=== PATIENT | male | born 1955 | race Caucasian/White ===

== ENCOUNTER 2024-10-20 14:39 | Emergency (ER) | payer OTHER, SELFPAY ==
[2024-10-20 14:43] VITALS: BP 146/79; PULSE 91; RESP 18; TEMP 36.6; O2SAT 98; BMI 26.4
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
[2024-10-20 16:20] LABS: Hematocrit* 38.3 % (37.0-53.0); Hemoglobin* 13.1 gm/dL (13.5-17.5); Immature Granulocytes Pct Auto 0.2 %; Mean Corpuscular HGB Conc 34 gm/dL (32-36); Mean Corpuscular Hemoglobin 30 pg (26-34); Mean Corpuscular Volume 86 fL (80-100); RDW Coefficient of Variation % 12.3 % (11.5-15.5); Red Blood Count* 4.44 m/uL (4.30-5.90); White Blood Count* 4.21 K/uL (4.50-11.00)
[2024-10-20 16:21] LABS: Immature Granulocytes Abs Auto 0.00 K/uL (0.00-0.30); Lymphocytes Absolute Auto 0.80 K/uL (0.90-2.90); Slide Review Reflex No
[2024-10-20 16:33] LABS: Albumin* 4.3 g/dL (3.3-5.0); Chloride* 92 mmol/L (96-114); Sodium* 127 mmol/L (135-149)
[2024-10-20 16:34] LABS: Potassium* 4.4 mmol/L (3.6-5.1)
[2024-10-20 16:36] LABS: Alanine Aminotransferase* 21 U/L (4-50); Anion Gap 4 mEq/L (7-15); Aspartate Amino Transferase* 31 U/L (12-35); Blood Urea Nitrogen* 12 mg/dL (7-30); Carbon Dioxide* 31 mmol/L (20-32); Creatinine* 0.8 mg/dL (0.5-1.5); Est. Creatinine Clearance* 76.52; Estimated Glomerular Filt Rate 96 ml/min; Total Protein* 7.3 g/dL (6.0-8.3)
[2024-10-20 16:37] LABS: Alkaline Phosphatase* 77 U/L (40-150); Bilirubin Total* 0.5 mg/dL (0.1-1.5); Calcium* 9.4 mg/dL (8.4-10.6); Glucose* 121 mg/dL (60-115)
[2024-10-20 16:41] LABS: Acetaminophen* < 10.0 ug/mL (10.0-30.0); Ethanol* < 0.01 % (0.01-0.03); Salicylate* < 1.0 mg/dL (1.0-10)
[2024-10-20 17:11] LABS: Appearance Urine Clear (Clear)
[2024-10-20 17:16] LABS: Cannabinoid Screen Urine Negative (Negative); Methamphetamines Screen Urine Negative (Negative); Tricyclic Antidepressant Urine POSITIVE (Negative)
== END 2024-10-20 18:04 | disposition home or self-care (01) ==
PROVIDERS: Emergency Provider Family Medicine
DX: F60.0 Paranoid personality disorder (principal); F42.9 Obsessive-compulsive disorder, unspecified; K40.90 Unilateral inguinal hernia, without obstruction or gangrene, not specified as recurrent; Z51.81 Encounter for therapeutic drug level monitoring
CPT/HCPCS: 36415; 80053; 80143; 80179; 80306; 81001; 82077; 85025; 99284; Q3014

== ENCOUNTER 2024-10-22 04:30 | Outpatient (CLI) | payer OTHER, SELFPAY | END 2024-10-22 04:31 | disposition home or self-care (01) | LOC: AMB 10-25 09:56 | PROVIDERS: Visit Provider Internal Medicine | DX: R41.82 Altered mental status, unspecified (principal) | CPT/HCPCS: A0425; A0427 ==

== ENCOUNTER 2024-10-22 05:19 | Emergency (ER) | payer OTHER, SELFPAY ==
--- OUTSIDE RECORDS SUMMARY | 2024-10-21 10:30 | XMS_ITS | Encounter Summary ---
Author Organization [facility] Address [address] [place] [id number] Care Team Providers Care Affiliate Manager Name Role Phone Ben Peterson DO Primary Care Provider [phone] Encounter Details Date Type Department Care Team (Late Contact Info) Description 10/21/2024 10:30 AM CDT Lab Visit [place] [address] [place] [address]. [place], [place] [id number] Encounter for long-term (current) use of medications; [...] Department Care Team (Late Contact Info) Description 10/28/2024 10:00 AM CDT Appointment [facility] [address] [place] [address] Ben Peterson DO [address] [place] [address] documented as of this encounter Procedures Procedure [...] Results * TSH (10/21/2024 10:38 AM CDT) TSH, Sensitive 1.01 0.30 - 4.50 uIU/mL 10/21/2024 2:11 PM CDT [facility] Blood Venipuncture / Unknown 10/21/2024 10:38 AM CDT 10/21/2024 10:38 AM CDT us Jennifer Olguin MD LAB_1 Final Result [facility] CLIA: [id number] [address] * (ABNORMAL) Basic Metabolic Panel (10/21/2024 10:38 AM CDT) Sodium 130(L) 136 - 145 mmol/L 10/21/2024 11:53 AM CDT [facility] Potassium 4.1 3.5 - 5.1 mmol/L 10/21/2024 11:53 AM CDT [facility] Chloride 96(L) 98 - 109 mmol/L 10/21/2024 11:53 AM CDT [facility] CO2 29 20 - 29 mmol/L 10/21/2024 11:53 AM [place] [address] [facility] Anion Gap 5 6 - 16 mmol/L 10/21/2024 11:53 AM [place] [address] [facility] Calcium 9.0 8.4 - 10.4 mg/dL 10/21/2024 11:53 AM [place] [address] [facility] BUN 9 7 - 26 mg/dL 10/21/2024 11:53 AM [place] [address] [facility] Creatinine 0.83 0.73 - 1.18 mg/dL 10/21/2024 11:53 AM [place] [address] [facility] Glucose 106(H) 70 - 100 mg/dL 10/21/2024 11:53 AM [place] [address] [facility] Comment:The given reference range is for the fasting state. Non-fasting reference range for glucose is 70 - 180 mg/dL. GFR, Estimated >60 >60 mL/min/1.7 3m2 10/21/2024 11:53 AM [place] [address] [facility] Hours Fasting 1.0 8 - 12 Hours 10/21/2024 11:53 AM [place] [address] [facility] Blood Venipuncture / Unknown 10/21/2024 10:38 AM CDT 10/21/2024 10:38 AM CDT us Jennifer Olguin MD LAB_1 Final Result [place] [address] [facility] CLIA: [id number] [address] [place] [id number] * Lipid Panel and Direct LDL(If Needed) (10/21/2024 10:38 AM CDT) Cholesterol 157 0 - 199 mg/dL 10/21/2024 11:53 AM [place] [address] [facility] Triglyceride 46 <=149 mg/dL 10/21/2024 11:53 AM [place] [address] [facility] HDL Cholesterol 51 >=40 mg/dL 11:53 AM [place] [address] [facility] LDL, Calculated 97 <130 mg/dL 11:53 AM CDT [place] [address] [facility] Non HDL Chol, Calculated 106 <=159 mg/dL 10/21/2024 11:53 AM CDT [place] [address] [facility] Cholesterol/HDL Ratio 3.1 <=5.0 10/21/2024 11:53 AM CDT [place] [address] [facility] Hours Fasting 1.0 8 - 12 Hours 10/21/2024 11:53 AM CDT [place] [address] [facility] Blood Venipuncture / Unknown 10/21/2024 10:38 AM CDT 10/21/2024 10:38 AM CDT us Jennifer Olguin MD LAB_1 Final Result [place] [address] [facility] CLIA: [id number] [address] [place] [phone] * (ABNORMAL) Hgb A1C (10/21/2024 10:38 AM CDT) Pathologist [facility] Hemoglobin A1C (Rapid) 5.8(H) <=5.6 % 10/21/2024 11:01 AM CDT [place] [address] [facility] Estimated Average Glucose (Calc) 120 < 117 mg/dL 10/21/2024 11:01 AM CDT [place] [address] [facility] Comment:Estimated average gl ucose (eAG) converts A1c into glucose units (mg/dL) and estimates average glucose over the past approximately 3 months. The eAG reference interval (<117 mg/dL) corresponds to an A1c of <5.7%. Blood Venipuncture / Unknown 10/21/2024 10:38 AM CDT 10/21/2024 10:38 AM CDT Narrative [place] [address] [facility] - 10/21/2024 11:01 AM CDT For [...] us Jennifer Olguin MD LAB_1 Final Result [facility] CLIA: [id number] [address] [place] [phone], [facility] documented in this encounter Visit Diagnoses Diagnosis Encounter for long-term (current) use of medications Encounter for long-term (current) use of other medications Psychosis, unspecified psychosis type ([facility]) documented in this encounter Care Teams Affiliate Manager Relationship Specialty Start Date End Date Ben Peterson DO [address] [place] [address] PCP - General Family Practice 10/02/23 documented as of this encounter
[2024-10-22 05:29] VITALS: BP 172/91; PULSE 80; RESP 16; TEMP 36.2; O2SAT 98; BMI 31.9
[2024-10-22 06:30] LABS: Hematocrit 39.3 % (37.0-53.0); Hemoglobin* 13.6 gm/dL (13.5-17.5); Immature Granulocytes Abs Auto 0.02 K/uL (0.00-0.30); Immature Granulocytes Pct Auto 0.3 %; Mean Corpuscular HGB Conc 35 gm/dL (32-36); Mean Corpuscular Hemoglobin 29 pg (26-34); Mean Corpuscular Volume 85 fL (80-100); RDW Coefficient of Variation % 12.4 % (11.5-15.5); Red Blood Count 4.65 m/uL (4.30-5.90); White Blood Count* 7.52 K/uL (4.50-11.00)
--- OUTSIDE RECORDS SUMMARY | 2024-10-22 06:31 | XMS_ITS | Clinical Summary ---
Author Organization [facility] Address [address] [address] Care Team Providers Care Developmental Education Instructor Name Role Phone Ben Peterson Primary Care Provider [phone] Source Comments You are receiving this document as you are listed as the primary care provider,follow-up provider, or the patient has been referred to you for consultation.This is in compliance with the Medicare and[facility] EHR Incentive Program,which states Providers who transition their patient to another setting of careor provider of care or refers their patient to another provider of care shouldprovide summary care record for each transition of care or referral. [employer] Allergies No known active allergies Medications * This document contains information received from the source organization and may not represent a complete record from that organization. diphenhydrAMINE (BENADRYL) 25 MG tabletIndication s:VALENTIN COLEMAN FriJuly 24, 2015 12:54 PM 2 tab every night 2 tabs at bedtime as needed for insomnia 1 tablet 0 06/01/19 14 Active MINOXIDIL 5 % Apply topically daily. Takes every 3-4 days 04/27/19 15 Active aspirin EC 81 MG enteric coated tabletIndication s:Controlled type 2 diabetes mellitus without complication, without long-term current use of insulin (HRC) Take 1 Tablet (81 mg) by mouth daily. To prevent heart disease and stroke 10/02/19 24 Active omeprazole (PRILOSEC-OTC) 20 MG tablet Take 2 Tablets (40 mg) by mouth. Active fluvoxaMINE (LUVOX) 100 MG tablet Take 1 Tablet (100 mg) by mouth three times a day. 270 Tablet 1 05/11/19 25 Active omeprazole (PRILOSEC) 20 MG capsuleIndicatio ns:Gastroesophag eal reflux disease without esophagitis TAKE 2 CAPSULES (40 MG) BY MOUTH DAILY. TAKE 1 HOUR BEFORE A MEAL. 60 Capsule 09/09/19 25 Active LORazepam (ATIVAN) 1 MG tablet TAKE 0.5 TABLETS (0.5 MG) BY MOUTH TWO TIMES DAILY NEEDED FOR ANXIETY. 30 Tablet 1 09/14/19 25 Active QUEtiapine (SEROQUEL) 400 MG tablet 1 tab po at bedtime (also has 50 mg tablet for total dose of 450 mg) 90 Tablet 10/01/19 25 Active methylphenidate (RITALIN) 10 MG tabletIndication s:Attention-defi cit hyperactivity disorder, predominantly inattentive type (HRC) Take 1 Tablet (10 mg) by mouth 4 times daily as needed (ADHD). 120 Tablet 10/13/19 25 Active OLANZapine (ZYPREXA) 5 MG tablet Take 1 Tablet (5 mg) by mouth every evening. 90 Tablet 1 10/22/19 25 Active QUEtiapine (SEROQUEL) 50 MG tablet Take 1 tab po qam and 1 tab po qpm and 1 tab po qhs 270 Tablet 10/22/19 25 Active fluvoxaMINE (LUVOX) 25 MG tablet TAKE 0.5-1 TABLET BY MOUTH DAILY, IN ADDITION TO THE 300 MG DOSE. 90 Tablet 1 05/11/19 25 025 Discontinued(I neffective for condition) QUEtiapine (SEROQUEL) 400 MG tablet 1 tab po at bedtime 90 Tablet 1 05/11/19 25 025 Discontinued(* Med change OR same med OR reorder, new dose/direction s) OLANZapine (ZYPREXA) 2.5 MG tablet Take 1 tab po qhs 90 Tablet 1 05/11/19 25 025 Discontinued QUEtiapine (SEROQUEL) 50 MG tablet Take 1 tab po qhs 90 Tablet 1 05/11/19 25 025 Discontinued(* Med change OR same med OR reorder, new dose/direction s) methylphenidate (RITALIN) 10 MG tabletIndication s:Attention-defi cit hyperactivity disorder, predominantly inattentive type (HRC) Take 1 Tablet (10 mg) by mouth 4 times daily as needed (ADHD). 120 Tablet 09/10/19 25 025 Discontinued(* Med change OR same med OR reorder, new dose/direction s) QUEtiapine (SEROQUEL) 50 MG tablet Take 1 tab po qhs 90 Tablet 10/01/19 25 025 Discontinued(* Med change OR same med OR reorder, new dose/direction s) Active Problems Problem Noted Date Diagnosed Date Psychosis 10/21/2024 MDD (major depressive disord er), recurrent, severe, with psychosis 08/18/2024 SINA (generalized anxiety disorder) 08/18/2024 Auditory hallucinations 05/10/2024 Controlled type 2 diabetes m ellitus without complication, without long-term current use of insulin 10/02/2023 Anxiety 03/30/2012 Dyslipidemia 09/18/2011 OCD (obsessive compulsive disorder) 01/07/2011 MDD (major depressive disord er), recurrent episode, moderate 01/07/2011 Attention-deficit hyperactiv ity disorder, predominantly inattentive type 01/07/2011 Esophageal reflux 05/08/2009 Overview (10/30/2016): Gastroesophageal Reflux Disease Resolved Problems Problem Noted Date Diagnosed Date Resolved Date Impaired fasting glucose 09/18/2011 Encounters * This document contains information received from the source organization and may not represent a complete record from that organization. Date Type Department Care Team Description 10/21/2024 10:30 AM CDT Lab Visit [facility] [address] [facility] [place], [place] [address] Encounter for long-term (current) use of medications; Psychosis, unspecified psychosis type (HRC) 10/05/2024 Refill 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 [address] Ben Peterson, Refill (omeprazole (PRILOSEC) 20 MG capsule) 09/03/2024 [address] [facility] [address] [place] [address] Leeroy Shelton MD Refill (omeprazole (PRILOSEC) 20 MG capsule [Pharmacy Med Name: OMEPRAZOLE DR 20 MG CAPSULE]) 08/17/2024 Telephone [facility] [address] [facility] [place] [address] Ben Peterson, DM/VASC/HTN Registry Call 1; DM/VASC/HTN Registry Call 2 from Last 3 Months Immunizations Immunization Administration Dates Next Due Influenza IIV4 (Quadrivalent) 0.5mL (16523) 12/09 Influenza IIV4 (Quadrivalent) Fluzone, 65+ Yrs 1 03/30/2021 Gisela COVID-19 Vaccine 07/13/2020 Moderna Bivalent 12+ 01/02/2022 Moderna COVID-19 12+ 01/05/2023 Moderna Monovalent 12+ 08/14/2021,02/02/2021 PPSV23 (Pneumovax) 09/29/2020 Pfizer Monovalent 12+ Purple Top 07/13/2020 TDAP (BOOSTRIX) 10/02/2011 Td 03/10/2004 Zoster RZV (Shingrix) 10/18/2020,10/01/2019 Family History Medical History Relation Name Comments Cancer Father lung OCD Father Cancer Mother breast cancer OCD Brother 1 OCD Brother 2 Cancer, Colon Negative Family History Cancer, Prostate Negative Family History Diabetes Negative Family History Glaucoma Negative Family History Heart Disease Negative Family History Macular Degeneration Negative Family History Retinal Detachment Negative Family History Relation Name Status Comments Father (Age 87) Mother (Age 73) Brother 1 Alive Brother 2 Alive Social History Tobacco Use Types Packs/Day Years [...] file Not on file Not on file Last Filed Vital Signs Vital Sign Reading Time Taken Comments Blood Pressure 142/73 08/18/2024 11:27 AM CDT Pulse 79 08/18/2024 11:27 AM CDT Temperature 36.7 C (98.1 F) 12/16/2023 11:27 AM CDT Respiratory Rate 24 12/16/2023 11:27 AM CDT Oxygen Saturation 100% 12/16/2023 11:27 AM CDT Inhaled Oxygen Concentration - - Weight 85.3 kg (188 lb) 08/18/2024 11:27 AM CDT Height 181.6 cm (5' 11.5) 10/02/2023 9:31 AM CD T Body Mass Index 25.86 10/02/2023 9:31 AM CDT Plan of Treatment Upcoming Encounters Date Type Department Care Team (Late st Contact Info) Description 10/28/2024 10:00 AM CDT Appointment [facility] [address] [place], [place] [phone] Ben Peterson, DO [address] [address] Health Maintenance Due Date Last Done Comments Hep B Immunization Discussion 1955 Colonoscopy 03/11/2020 03/11/2018, 07/16/2017 Pneumococcal Vaccine 50+ Yrs (2 of 2 - PCV) 09/29/2021 09/29/2020 DTaP/Tdap/Td Vaccine (2 - Tdap) 10/01/2021 10/02/2011, 03/10/2004 Medicare Annual Wellness Visit 03/10/2024 03/31/2023, 10/28/2022, 10/05/2021, Additional history exists COVID-19 Vaccine ( season) 2024 12/18/2023, 01/05/2023, 01/02/2022, Additional history exists Diabetes: Foot Exam 10/01/2024 10/02/2023 Influenza Vaccine (#1) 2024 01/28/2022, 2012 Diabetes: Albumin/Creatinine Ratio, Urine 12/24/2024 12/25/2023 Diabetes: Eye Exam 03/30/2025 03/30/2024 Diabetes: HGBA1C 04/23/2025 10/21/2024, , 12/25/2023, Additional history exists Diabetes: Creatinine 10/21/2025 10/21/2024, 03/31/2023, 10/28/2022, Additional history exists Diabetes: Lipid Panel 10/21/2029 10/21/2024 , 10/28/2022, 10/05/2021, Additional history exists RSV Vaccine (1 - 1-dose 75+ series) 2030 Hep C Screening (Preventive Services) Completed 05/27/2018 Zoster/Shingles Vaccine Completed 10/18/2020, 09/30 PSA Screening Discussion Discontinued 023, 10/05/2021, 09/29/2020, Additional history exists Cholesterol Discontinued 10/21/2024, 10/09, 10/05/2021, Additional history exists HepA Vaccine Aged Out No longer eligi ble based on patient's age to complete this topic HepB Vaccine Aged Out No longer eligi ble based on patient's age to complete this topic Hib Vaccine Aged Out No longer eligi ble based on patient's age to complete this topic IPV (Polio) Vaccine Aged Out No longe r eligible based on patient's age to complete this topic MCV4 Vaccine Aged Out No longer eligi ble based on patient's age to complete this topic Meningococcal B Vaccine Aged Out No l onger eligible based on patient's age to complete this topic Procedures Procedure Name Priority Date/Time Associated Diagnosis Comments TSH, SENSITIVE Routine 10/21/2024 10:38 AM CDT Encounter for long-term (current) use of medications BASIC METABOLIC PANEL Routine 10/21/2024 10:38 AM CDT Psychosis, unspecified psychosis type (HRC) Encounter for long-term (current) use of medications LIPID PANEL & DIRECT LDL (IF NEEDED) Routine 10/21/2024 10:38 AM CDT Encounter for long-term (current) use of medications HGB A1C Routine 10/21/2024 10:38 AM CDT Encounter for long-term (current) use of medications ALBUMIN/CREAT RATIO Routine 12/25/2023 1 1:27 AM CDT Controlled type 2 diabetes mellitus without complication, without long-term current use of insulin (HRC) PROSTATIC SPECIFIC ANTIGEN(SCREEN) Routine 10/28/2022 10:14 AM CDT Screening for prostate cancer HEPATITIS C ANTIBODY, WITH REFLEX (ANTI-HCV) Routine 05/27/2018 12:21 PM CDT Need for hepatitis C screening test ENDOSCOPY, COLON, SCREENING/DIAGNOSTI C Routine 03/11/2018 2:47 PM TECHNICAL SUPPORT 1 SOFTWARE ENGINEER Polyp of colon, unspecified part of colon, unspecified type from Last 3 Months or Most Recently Relevant to Health Maintenance Results * Lipid Panel and Direct LDL(If Needed) (10/21/2024 10:38 AM CDT) Cholesterol 157 0 - 199 mg/dL 10/21/2024 11:53 AM [facility] [address] [facility] Triglyceride 46 <=149 mg/dL 10/21/2024 11:53 AM [place] [facility] [address] [facility] HDL Cholesterol 51 >=40 mg/dL 11:53 AM [place] [address] [facility] LDL, Calculated 97 <130 mg/dL 11:53 AM [place] [address] [facility] Non HDL Chol, Calculated 106 <=159 mg/dL 10/21/2024 11:53 AM [facility] [address] [facility] Cholesterol/HDL Ratio 3.1 <=5.0 10/21/2024 11:53 AM [place] [place] [address] [facility] Hours Fasting 1.0 8 - 12 Hours 10/21/2024 11:53 AM [place] [address] [facility] Blood Venipuncture / Unknown 10/21/2024 10:38 AM CDT 10/21/2024 10:38 AM CDT Jennifer Olguin MD LAB_1 Final Result Performing Organization Address [facility] de Phone Number [facility] [address] [facility] CLIA: [id number] [address] [place] [address] * TSH (10/21/2024 10:38 AM CDT) [facility] TSH, Sensitive 1.01 0.30 - 4.50 uIU/mL 10/21/2024 2:11 PM CDT [facility] Blood Venipuncture / Unknown 10/21/2024 10:38 AM CDT 10/21/2024 10:38 AM CDT Jennifer Olguin MD LAB_1 Final Result Performing Organization Address [facility] de Phone Number [facility] CLIA: [id number] [address] [place] [id number] * (ABNORMAL) Basic Metabolic Panel (10/21/2024 10:38 AM CDT) [facility] Sodium 130(L) 136 - 145 mmol/L 10/21/2024 11:53 AM [place] [address] [facility] Potassium 4.1 3.5 - 5.1 mmol/L 10/21/2024 11:53 AM [place] [address] [facility] Chloride 96(L) 98 - 109 mmol/L 10/21/2024 11:53 AM [place] [address] [facility] CO2 29 20 - 29 mmol/L 10/21/2024 11:53 AM [place] [address] [facility] Anion Gap 5 6 - 16 mmol/L 10/21/2024 11:53 AM [place] [address] [facility] Calcium 9.0 8.4 - 10.4 mg/dL 10/21/2024 11:53 AM [place] [address] [facility] BUN 9 7 - 26 mg/dL 10/21/2024 11:53 AM [place] [address] [facility] Creatinine 0.83 0.73 - 1.18 mg/dL 10/21/2024 11:53 AM [facility] [place] [address] [facility] Glucose 106(H) 70 - 100 mg/dL 10/21/2024 11:53 AM [facility] [place] [address] [facility] Comment:The given reference range is for the fasting state. Non-fasting reference range for glucose is 70 - 180 mg/dL. GFR, Estimated >60 >60 mL/min/1.7 3m2 10/21/2024 11:53 AM T [place] [address] [facility] Hours Fasting 1.0 8 - 12 Hours 10/21/2024 11:53 AM T [place] [address] [facility] Blood Venipuncture / Unknown 10/21/2024 10:38 AM CDT 10/21/2024 10:38 AM CDT us Jennifer Olguin MD LAB_1 Final Result [facility] [facility] [address] [facility] CLIA: [id number] [address] [place] [id number] * (ABNORMAL) Hgb A1C (10/21/2024 10:38 AM CDT) [facility] Hemoglobin A1C (Rapid) 5.8(H) <=5.6 % 10/21/2024 11:01 AM T [place] [address] [facility] Estimated Average Glucose (Calc) 120 < 117 mg/dL 10/21/2024 11:01 AM T [place] [address] [facility] Comment:Estimated average gl ucose (eAG) converts A1c into glucose units (mg/dL) and estimates average glucose over the past approximately 3 months. The eAG reference interval (<117 mg/dL) corresponds to an A1c of <5.7%. Blood Venipuncture / Unknown 10/21/2024 10:38 AM CDT 10/21/2024 10:38 AM CDT Narrative [facility] [facility] [address] [facility] - 10/21/2024 11:01 AM CDT For [...] us Jennifer Olguin MD LAB_1 Final Result Performing Organization Address [facility] Co de Phone Number [facility] [address] [facility] CLIA: [id number] [address] [place] [address] * Albumin/Creatinine Ratio,Random Urine (12/25/2023 11:27 AM CDT) Albumin/Creati nine Ratio, Urine, Random 3 <30 mg/g 12/25/2023 7:18 PM CDT [facility] Albumin, Urine, Random 2.4 mg/L 12/25/2023 7:18 PM CDT [facility] Creatinine, Urine, Random 72 >20 mg/dL mg/dL 12/25/2023 7:18 PM CDT [facility] Urine Non-blood Collection / Unknown 12/25/2023 11:27 AM CDT 12/25/2023 11:27 AM CDT Ben Peterson DO LAB_1 Final Result Performing Organization Address [facility] Co de Phone Number [facility] [address] * Prostatic Specific Antigen (Screen) (10/28/2022 10:14 AM CDT) Prostatic Specific Antigen 0.4 0.0 - 4.0 ng/mL 10/28/2022 4:02 PM CDT [facility] Blood Venipuncture / Unknown 10/28/2022 10:14 AM CDT 10/28/2022 10:14 AM CDT Narrative [facility] - 10/28/2022 4:02 PM CDT The [employer] PSA Chemiluminescent immunoassay is used. Results obtained with different test methods or kits cannot be used interchangeably. us Leeroy Shelton MD LAB_1 Final Result Performing Organization Address [facility] de Phone Number [id number] [place] [address] * Hepatitis C Antibody, with Reflex (05/27/2018 12:21 PM CDT) Hepatitis C Antibody Nonreactive Nonreactive PN SOFT 05/27/2018 12:2 1 PM CDT 05/27/2018 3:27 PM CDT Narrative PN SOFT - 05/27/2018 4:12 PM [place] [address] CLIA number [id number] us Chase Ho MD LAB_1 Final Resu lt Performing Organization Address [facility] de Phone Number PN SOFT [address] [place] [address] * Endoscopy, colon, diagnostic (03/11/2018 2:47 PM TECHNICAL SUPPORT 1 SOFTWARE ENGINEER) Anatomical Region Laterality Modality Other 03/11/2018 2:47 PM TECHNICAL SUPPORT 1 SOFTWARE ENGINEER Narrative 03/11/2018 2:47 PM TECHNICAL SUPPORT 1 SOFTWARE ENGINEER Patient Name: Juan Jose Szymanski Procedure Date: 03/11/2018 2:47 PM Date of : 1955 Admit Type: Outpatient Age: 63 Gender: Male Note Status: Finalized Attending MD: Lara Suarez MD Procedure: Colonoscopy Indications: High risk colon cancer surveillance: Personal history of colonic polyps, Surveillance: Personal history of piecemeal removal of large sessile adenoma on last colonoscopy 6 months ago Providers: Lara Suarez MD, Karol Serrano, RN Referring MD: Lara Suarez MD Medicines: Fentanyl 150 micrograms IV, Midazolam 4 mg IV, Oxygen 2l/min per nasal cannula, CO2 insufflation Complications: No immediate complications. Estimated blood loss: None. Procedure: After I obtained informed consent, the scope was passed under direct vision. Throughout the procedure, the patient's blood pressure, pulse, and oxygen saturations were monitored continuously. The [id number] was introduced through the anus and advanced to the terminal ileum. The colonoscopy was performed without difficulty. The patient tolerated the procedure well. The quality of the bowel preparation was good. Findings: The perianal and digital rectal examinations were normal. A medium scar was found in the cecum. The scar tissue was healthy in appearance. There was no evidence of the previous polyp. This was biopsied with a cold forceps for histology. Coagulation for destruction of remaining portion of lesion using argon plasma at 0.8 liters/minute and 20 marcelo was successful. The terminal ileum appeared normal. Impression: - Scar in the cecum. Biopsied. Treated with argon plasma coagulation (APC). - The examined portion of the ileum was normal. Recommendation: - Await pathology results. - Repeat colonoscopy in 2 years for surveillance based on pathology results. Procedure Code(s): --- Professional --- 20520, Colonoscopy, flexible; with ablation of tumor(s), polyp(s), or other lesion(s) (includes pre- and post-dilation and guide wire passage, when performed) Diagnosis Code(s): --- Professional --- Z86.010, Personal history of colonic polyps K63.89, Other specified diseases of intestine Z09, Encounter for follow-up examination after completed treatment for conditions other than malignant neoplasm CPT copyright 2016 [employer]. All rights reserved. The codes documented in this report are preliminary and upon sausage grinder review may be revised to meet current compliance requirements. Lara Suarez MD 03/11/2018 3:57:55 PM This document has been electronically signed. Number of Addenda: 0 Note Initiated On: 03/11/2018 2:47 PM Endoscopy Report Procedure Note Lara Suarez MD - 03/11/2018 Patient Name: Juan Jose Szymanski Procedure Date: 03/11/2018 2:47 PM Date of : 1955 Admit Type: Outpatient Age: 63 Gender: Male Note Status: Finalized Attending MD: Lara Suarez MD Procedure: Colonoscopy Indications: High risk colon cancer surveillance: Personal history of colonic polyps, Surveillance: Personal history of piecemeal removal of large sessile adenoma on last colonoscopy 6 months ago Providers: Lara Suarez MD, Karol Serrano RN Referring MD: Lara Suarez MD Medicines: Fentanyl 150 micrograms IV, Midazolam 4 mg IV, Oxygen 2l/min per nasal cannula, CO2 insufflation Complications: No immediate complications. Estimated blood loss: None. Procedure: After I obtained informed consent, the scope was passed under direct vision. Throughout the procedure, the patient's blood pressure, pulse, and oxygen saturations were monitored continuously. The [id number] was introduced through the anus and advanced to the terminal ileum. The colonoscopy was performed without difficulty. The patient tolerated the procedure well. The quality of the bowel preparation was good. Findings: The perianal and digital rectal examinations were normal. A medium scar was found in the cecum. The scar tissue was healthy in appearance. There was no evidence of the previous polyp. This was biopsied with a cold forceps for histology. Coagulation for destruction of remaining portion of lesion using argon plasma at 0.8 liters/minute and 20 marcelo was successful. The terminal ileum appeared normal. Impression: - Scar in the cecum. Biopsied. Treated with argon plasma coagulation (APC). - The examined portion of the ileum was normal. Recommendation: - Await pathology results. - Repeat colonoscopy in 2 years for surveillance based on pathology results. Procedure Code(s): --- Professional --- 65050, Colonoscopy, flexible; with ablation of tumor(s), polyp(s), or other lesion(s) (includes pre- and post-dilation and guide wire passage, when performed) Diagnosis Code(s): --- Professional --- Z86.010, Personal history of colonic polyps K63.89, Other specified diseases of intestine Z09, Encounter for follow-up examination after completed treatment for conditions other than malignant neoplasm CPT copyright 2016 [employer]. All rights reserved. The codes documented in this report are preliminary and upon sausage grinder review may be revised to meet current compliance requirements. Lara Suarez MD 03/11/2018 3:57:55 PM This document has been electronically signed. Number of Addenda: 0 Note Initiated On: 03/11/2018 2:47 PM Endoscopy Report us Lara Suarez MD ET GI PROCEDURE ORDERABLE S Final Result from Last 3 Months or Most Recently Relevant to Health Maintenance Insurance [employer] MEDICARE ADVANTAGE MEDICARE ADVANTAGE Care Teams Developmental Education Instructor Relationship Specialty Start Date End Date Ben Peterson DO [address] [place] [address] PCP - General Family Practice 10/02/23
--- OUTSIDE RECORDS SUMMARY | 2024-10-22 06:31 | XMS_ITS | Encounter Summary ---
Author Organization [facility] Address [address], [place] [address] Care Team Providers Care Electronic Commerce Specialist Name Role Phone Ben Peterson Primary Care Provider [phone] Reason for Visit * Reason Comments Refill omeprazole (PRILOSEC ) 20 MG capsule [Pharmacy Med Name: OMEPRAZOLE DR 20 MG CAPSULE] Encounter Details Date Type Department Care Team (Late st Contact Info) Description 09/03/2024 Refill [facility] [address] [facility], [facility] [address] [place] [address] Malick Maharaj MD [address] [place] [address] Refill (omeprazole (PRILOSEC) 20 MG capsule [Pharmacy Med Name: OMEPRAZOLE DR 20 MG CAPSULE]) Social History Tobacco Use Types Packs/Day Years [...] on file documented as of this encounter Nursing Notes * Samantha Lyn - 09/07/2024 10:02 AM CDT Medication Refill - Due for Visit Medication still pending, patient is due to be seen in the next 30 days. Called patient, was: unable to reach patient. 2nd call attempted. Unsuccessful in reaching patient. Frontline Action: Route to clinician identified in nursing documentation below. Clinician Action: Unsuccessful in reaching patient to schedule, requests refill. Please determine whether refill is appropriate. Recommend using ???Refuse All?? quick action to address request. * Bianca Archer - 09/06/2024 5:33 PM CDT Medication Refill - Due for Visit Medication still pending, patient is due to be seen in the next 30 days. Called patient, was: unable to reach patient. 1st call attempted. Left message to call back. Scheduling Action: Patient needs to schedule an appointment in the next 30 days. If able to schedule, please document date of appointment and route to clinician/pool identified in nursing documentation below. * Flor Quinn, RN - 09/06/2024 3:58 PM CDT Further Assistance Needed on Refill from Technology Development Intern Patient is due for Qualifying Visit Medication is still pending. Patient is due for an Office/Video Visit in the next 30 days.. Call Patient and document using .[email or web address]. After attempting to schedule patient: If appointment is scheduled within 60 days: Please route to: Refill pool If unable to schedule appointment or scheduled greater than 60 days: Please route to: Ben Peterson DO * Ekaterina Lau Xrwcomm - 09/03/2024 12:08 AM CDT omeprazole (PRILOSEC) 20 MG capsule [Pharmacy Med Name: OMEPRAZOLE DR 20 MG CAPSULE] Medication started: 06/14/2019 Last ordered by MALICK MAHARAJ M: 03/19/2024 (168 days ago) QTY: 180, Refills: 1, Sig: take 2 capsules(40 mg) by mouth daily. take 1 hour before a meal. (unchanged) -> An office visit is overdue (performed over 13 months ago, required every 12 months). Last qualifying visit: 07/28/2023 (with MALICK MAHARAJ) (A more recent visit (in Family Practice with BEN PETERSON) was found) Next scheduled visit: [facility] Embedded Refills, Reference: [id number], 09/03/2024 12:08:46 AM CDT, Abdirahman: VAN Refill Centralized Services - Primary Care [[id number]] ([id number]) documented in this encounter Plan of Treatment Upcoming Encounters Date Type Department Care Team (Late st Contact Info) Description 10/28/2024 10:00 AM CDT Appointment [facility] [address] [place] [address] Ben Peterson, DO [address] [id number] documented as of this encounter Visit Diagnoses Diagnosis Gastroesophageal reflux disease without esophagitis Esophageal reflux documented in this encounter Care Teams Electronic Commerce Specialist Relationship Specialty Start Date End Date Ben Peterson DO [address] [place] [address] PCP - General Family Practice 10/02/23 documented as of this encounter
--- OUTSIDE RECORDS SUMMARY | 2024-10-22 06:31 | XMS_ITS | Encounter Summary ---
Author Organization [facility] Address [address], [place] [address] Care Team Providers Care Nurse Practitioner Physicians Assistant Name Role Phone Ben Peterson DO Primary Care Provider [phone] Reason for Visit * Reason Comments Refill omeprazole (PRILOSEC ) 20 MG capsule [Pharmacy Med Name: OMEPRAZOLE DR 20 MG CAPSULE] Encounter Details Date Type Department Care Team (Late st Contact Info) Description 10/05/[address] [facility] [address] [facility], [facility] [address] [place] [address] Clarice Acosta, TROUBLE CLERK, MANAGER ACUTE [address] [address] [facility] [place] [address] Refill (omeprazole (PRILOSEC) 20 MG capsule [Pharmacy [...] as of this encounter Nursing Notes * Nicholas Segura, RN - 10/07/2024 10:24 AM CDT Further Assistance Needed on Refill from Clinician RN reviewed. Signed order needed. Requested medication needs an order signed by an authorized prescriber. Last visit with pcp was 10/02/23 Review pended order for accuracy. Sign if appropriate. Document if appointment is needed for further refills. Route to care team to notify patient if needed. Requested Prescriptions Pending Prescriptions Disp Refills omeprazole (PRILOSEC) 20 MG capsule [Pharmacy Med Name: OMEPRAZOLE DR 20 MG CAPSULE] 180 Capsule 0 Sig: TAKE 2 CAPSULES (40 MG) BY MOUTH DAILY. TAKE 1 HOUR BEFORE A MEAL. documented in this encounter Plan of Treatment Upcoming Encounters Date Type Department Care Team (Late st Contact Info) Description 10/28/2024 10:[address] [facility] [address] [place] [address] Ben Peterson DO [address] [place] [address] documented as of this encounter Visit Diagnoses Diagnosis Gastroesophageal reflux disease without esophagitis Esophageal reflux documented in this encounter Care Teams Nurse Practitioner Physicians Assistant Relationship Specialty Start Date End Date Ben Peterson DO [address] [place] [address] PCP - General Family Practice 10/02/23 documented as of this encounter
--- OUTSIDE RECORDS SUMMARY | 2024-10-22 06:31 | XMS_ITS | Clinical Summary ---
Author Organization [facility] Address [address] [place] [address] Care Team Providers Care Raisin Separator Operator Name Role Phone Generic, Behavioral Intake MD Primary Care Provi naseem Unavailable Allergies Active Allergy Reactions Criticality Noted Date Comments Ragweeds 11/27/2010 Medications * This document contains information received from the source organization and may not represent a complete record from that organization. Fluvoxamine Maleate (LUVOX CR) 100 MG CP24 Take 100 mg by mouth 3 times daily. Take 212.5 mg at bed time and 100 mg in the morning Active methylphenidate (RITALIN) 10 MG tablet Take 10 mg by mouth 4 times daily. Active lorazepam (ATIVAN) 0.5 MG tablet Take 0.5 mg by mouth 2 times daily. Active quetiapine (SEROQUEL) 400 MG tabletIndicatio ns:hallucinatio ns Take 450 mg by mouth at bedtime. Active olanzapine (ZYPREXA) 2.5 MG tablet Take 2.5 mg by mouth At Bedtime. Active Diphenhydramine -APAP, sleep, (PAIN RELIEF PM PO) Take 500 mg by mouth At Bedtime. Above is ASA +benadryl 25 mg Takes two to sleep every night. Active fluvoxaMINE (LUVOX) 25 MG tablet Take 12.5 mg by mouth at bedtime. Active omeprazole (PRILOSEC OTC) 20 MG EC tablet Take 40 mg by mouth daily. Active Active Problems Problem Noted Date Diagnosed Date MDD (major depressive disord er), recurrent episode, moderate 03/31/2024 Obsessive-compulsive disorder 12/11/2010 Overview (12/09/2014): Problem list name updated by automated process. Provider to review Attention deficit disorder 12/11/2010 Overview (12/09/2014): Problem list name updated by automated process. 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 Parkinsonism Father Substance Abuse Maternal Grandfather Mental Illness Paternal Uncle 1 OCD Mental Illness Paternal Uncle 2 OCD Relation Status Comments Brother 1 Alive Brother 2 Alive Father Maternal Grandfather Maternal Grandmother Mother Paternal Grandfather Paternal Grandmother Paternal Uncle 1 Paternal Uncle 2 Social History Tobacco Use Types Packs/Day Years Used Date Smoking Tobacco: Never Tobacco Cessation:Counseling Given: Yes Alcohol Use Standard Drinks/Week Comments No 0 (1 standard drink = 0.6 oz pur e alcohol) PHQ-2 Answer Date Recorded PHQ-2 Score 3 03/31/2024 Adolescent Education Answer Date Record ed Getting School Help Needed Not on file 02/24 Sex and Gender Information Value Date Recorded Sex Assigned at Not on file Legal Sex Male 3:07 AM INTERNAL MEDICINE NURSE PRACTITIONER Gender Identity Not on file Sexual Orientation Not on file Last Filed Vital Signs Vital Sign Reading Time Taken Comments Blood Pressure 148/98 12/16/2023 3:10 PM CDT Pulse 80 12/16/2023 3:10 PM CDT Temperature 36.8 C (98.3 F) 12/16/2023 12:43 PM CDT Respiratory Rate 18 12/16/2023 3:10 PM CDT Oxygen Saturation 100% 12/16/2023 3:10 PM CDT Inhaled Oxygen Concentration - - Weight 90.4 kg (199 lb 4.7 oz) 12/16/2023 12:43 PM CDT Height 182.9 cm (6') 12/16/2023 12:43 PM CDT Body Mass Index 27.03 12/16/2023 12:43 PM CDT Plan of Treatment Health Maintenance Due Date Last Done Comments ADVANCE CARE PLANNING 1955 ANNUAL REVIEW OF HM ORDERS 1955 CT COLONOGRAPHY 1955 DEPRESSION ACTION PLAN 1955 FIT 1955 FLEX SIG 1955 sDNA (Cologuard) 1955 COLONOSCOPY 1965 COLORECTAL CANCER SCREENING 1965 LIPID 1995 FALL RISK ASSESSMENT 2020 PNEUMOCOCCAL VACCINE 50+ YEARS (2 of 2 - PCV) 09/29/2021 09/29/2020 DTAP/TDAP/TD VACCINE (2 - Td or Tdap) 10/01/2021 10/02/2011, 03/10/2004 MEDICARE ANNUAL WELLNESS VISIT 10/05/2022 10/05/2021, 09/29/2020, 09/16/2019, Additional history exists COVID-19 VACCINE ( season) 2024 12/18/2023, 01/05/2023, 01/02/2022, Additional history exists PHQ-9 09/28/2024 03/31/2024, 03/18/2024 INFLUENZA VACCINE (#1) 2024 , 12/29/2012, 01/15/2002, Additional history exists DIABETES SCREENING 12/15/2026 12/16/2023 RSV VACCINE (1 - 1-dose 75+ series) 2030 HEPATITIS C SCREENING Completed 05/27/2018 ZOSTER VACCINE Completed 10/18/2020, 10/01/2019 HPV VACCINE (No Doses Required) Completed MENINGITIS VACCINE Aged Out No longer eligible based on patient's age to complete this topic Procedures Procedure Name Priority Date/Time Associated Diagnosis Comments BASIC METABOLIC PANEL STAT 12/16/2023 1:35 PM CDT from Last 3 Months or Most Recently Relevant to Health Maintenance Results * (ABNORMAL) Basic metabolic panel (12/16/2023 1:35 PM CDT) Sodium 134(L) 135 - 145 mmol/L 12/16/2023 2:23 PM CDT [facility] Potassium 3.8 3.4 - 5.3 mmol/L 12/16/2023 2:23 PM CDT [facility] Chloride 97(L) 98 - 107 mmol/L 12/16/2023 2:23 PM CDT [facility] Carbon Dioxide (CO2) 25 22 - 29 mmol/L 12/16/2023 2:23 PM CDT [facility] Anion Gap 12 7 - 15 mmol/L 12/16/2023 2:23 PM CDT [facility] Urea Nitrogen 16.8 8.0 - 23.0 mg/dL 12/16/2023 2:23 PM CDT [facility] Creatinine 1.00 0.67 - 1.17 mg/dL 12/16/2023 2:23 PM CDT [facility] GFR Estimate 82 >60 mL/min/1.7 3m2 12/16/2023 2:23 PM CDT [facility] Comment:eGFR calculated usin 2020 CKD-EPI equation. Calcium 9.2 8.8 - 10.4 mg/dL 12/16/2023 2:23 PM CDT [facility] Comment:Reference intervals for this test were updated on 09/23/2023 to reflect our healthy population more accurately. There may be differences in the flagging of prior results with similar values performed with this method. Those prior results can be interpreted in the context of the updated reference intervals. Glucose 88 70 - 99 mg/dL 12/16/2023 2:23 PM CDT [facility] Blood STRUCTURE OF RIGHT UPPER LIMB / Unknown Venipuncture / Unknown 12/16/2023 1:35 PM CDT 12/16/2023 1:49 PM CDT Joselito Diaz MD LAB - BLOOD ORDERABLES Final Result [facility] [address] [facility] (1st floor, no room number) [place] [address], [place] from Last 3 Months or Most Recently Relevant to Health Maintenance Insurance [employer] Care Teams Raisin Separator Operator Relationship Specialty Start Date End Date Generic, Behavioral MD Luke PCP - General 02/27/23
--- OUTSIDE RECORDS SUMMARY | 2024-10-22 06:31 | XMS_ITS | Encounter Summary ---
Author Organization [facility] Address [address], [place] [address] Care Team Providers Care Furnace Erector Name Role Phone Ben Peterson DO Primary Care Provider [phone] Reason for Visit * Reason Onset Date Comments Refill 09/30/2024 omeprazole (PRIL OSEC) 20 MG capsule Encounter Details Date Type Department Care Team (Late st Contact Info) Description 09/30/2024 Refill [facility] [address] [facility] [place], [place] [id number] Ben Peterson DO [address], [place] [id number] Refill (omeprazole (PRILOSEC) 20 MG capsule) Social History Tobacco Use Types Packs/Day Years [...] as of this encounter Nursing Notes * Ryan Peterson - 10/13/2024 5:52 PM CDT FLS: please advise of provider message and assist in scheduling appt. Ryan Peterson CMA 10/13/2024 5:52 PM * Ben Peterson DO - 10/13/2024 4:48 PM CDT Refill declined, pt should follow up to determine if further refills are needed/for further refills. There will be no further refills until the patient is seen. Ben Peterson DO * Yamilet Lynn - 10/07/2024 11:07 AM CDT Medication Refill - Due for [...] All?? quick action to address request. * Vandana Ruvalcaba - 10/04/2024 11:15 AM CDT Medication Refill - Due for Visit Medication still pending for clinician review, patient is due to be seen in the next 30 days. Called patient, was: unable to reach patient. 1st call attempted. Left message to call back. Scheduling Action: Patient needs to schedule an appointment in the next 30 days. If able to schedule, please document date of appointment and route to clinician/pool identified in nursing documentation below. * Vernell Peng RN - 10/04/2024 10:12 AM CDT Further Assistance Needed on Refill from Coach Builder Patient is due for Qualifying Visit Medication is still pending. Patient is due for an Office/Video Visit in the next 30 days. Call Patient and document using .SIVA. After attempting to schedule patient: Please route to: Ben Peterson, DO Requested Prescriptions Pending Prescriptions Disp Refills omeprazole (PRILOSEC) 20 MG capsule 180 Capsule 0 Sig: Take 2 Capsules (40 mg) by mouth daily. Take 1 hour before a meal. * Ekaterina Lau Xrwcomm - 09/30/2024 1:11 PM CDT omeprazole (PRILOSEC) 20 MG capsule Medication started: 06/14/2019 Last ordered by VANIA POOL K: 09/08/2024 (22 days ago) QTY: 60, Refills: 0, Sig: take 2 capsules (40 mg) by mouth daily. take 1 hour before a meal. (unchanged) -> A qualifying visit was not found within the last 2 years. Last qualifying visit: None (A recent visit (in Family Practice with BEN PETERSON) was found) Next [facility] Embedded Refills, Reference: [id number], 09/30/2024 1:11:44 PM CASIET, Abdirahman: VAN Refill Centralized Services - Primary Care [[id number]] ([id number]) documented in this encounter Plan of Treatment Upcoming Encounters Date Type Department Care Team (Late st Contact Info) Description 10/28/2024 10:00 AM CDT Appointment [facility] [address] [facility] [place] [address] Ben Peterson DO [address] [place] [address] documented as of this encounter Visit Diagnoses Diagnosis Gastroesophageal reflux disease without esophagitis Esophageal reflux documented in this encounter Care Teams Furnace Erector Relationship Specialty Start Date End Date Ben Peterson DO [address] [place] [place] [address] PCP - General Family Practice 10/02/23 documented as of this encounter
--- OUTSIDE RECORDS SUMMARY | 2024-10-22 06:31 | XMS_ITS | Encounter Summary ---
Author Organization [facility] Address [address] [facility] [place] [address] Care Team Providers Care Dedicated Regional Driver Name Role Phone Generic, Behavioral Intake Primary Care Provi naseem Unavailable Encounter Details Date Type Department Care Team (Late st Contact Info) Description 06/14/2024 MyC Medical Advice [facility] [address] [place] [id number] Zander Vazquez, CNC GRINDER Social History Tobacco Use Types Packs/Day Years Used Date Smoking Tobacco: Never Alcohol Use Standard Drinks/Week Comments No 0 (1 standard drink = 0.6 oz pur e alcohol) PHQ-2 Answer Date Recorded PHQ-2 Score 3 03/31/2024 Adolescent Education Answer Date Record ed Getting School Help Needed Not on file 02/24 Sex and Gender Information Value Date Recorded Sex Assigned at Not on file Legal Sex Male 3:07 AM 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
[2024-10-22 06:41] LABS: Lymphocytes Absolute Auto 0.40 K/uL (0.90-2.90); Slide Review Reflex No
[2024-10-22 06:49] LABS: Albumin* 4.5 g/dL (3.3-5.0); Chloride* 90 mmol/L (96-114)
[2024-10-22 06:50] LABS: Potassium* 4.3 mmol/L (3.6-5.1); Sodium* 126 mmol/L (135-149)
[2024-10-22 06:52] LABS: Alanine Aminotransferase* 27 U/L (4-50); Alkaline Phosphatase* 95 U/L (40-150); Anion Gap 9 mEq/L (7-15); Aspartate Amino Transferase* 39 U/L (12-35); Bilirubin Total* 1.3 mg/dL (0.1-1.5); Blood Urea Nitrogen* 18 mg/dL (7-30); Carbon Dioxide* 27 mmol/L (20-32); Creatinine* 0.8 mg/dL (0.5-1.5); Est. Creatinine Clearance* 76.52; Estimated Glomerular Filt Rate 96 ml/min; Total Protein* 7.7 g/dL (6.0-8.3)
[2024-10-22 06:53] LABS: Calcium* 10.0 mg/dL (8.4-10.6); Glucose* 95 mg/dL (60-115); Salicylate* < 1.0 mg/dL (1.0-10)
[2024-10-22 06:57] LABS: Acetaminophen* < 10.0 ug/mL (10.0-30.0); Ethanol* < 0.01 % (0.01-0.03)
--- NOTE | 2024-10-22 07:02 | ED.GENADULT ---
HPI - General Adult General Chief complaint: Psychiatric Problem/Disorder <Bob Pineda MD - Last Filed: 10/23/24 00:08> Stated complaint: hallucinating <Bob Pineda MD - Last Filed: 10/23/24 00:08> Time Seen by Provider: 10/22/24 05:44 <Bob Pineda MD - Last Filed: 10/23/24 00:08> History of Present Illness HPI narrative: Patient is a 69-year-old gentleman with a history of psychosis who was found wandering around in the rain overnight. Patient and claimed to be injured. He is disoriented in has nonsensical speech. Patient states she has been taking his medication. Patient was seen in the emergency room 2 days ago and treated and released. Patient states that he has been taking his medications which include Seroquel lungs of pain methylphenidate and fluoxetine. He has not been drinking alcohol. He has no history of any recent injuries. <Bob Pineda MD - Last Filed: 10/23/24 00:08> Related Data Home medications: Home Medications ?Medication ?Instructions ?Recorded ?Confirmed aspirin 81 mg tablet,delayed 81 mg PO DAILY 10/20/24 10/22/24 release (Adult Aspirin Regimen) diphenhydramine HCl 50 mg capsule 50 mg PO QHS 10/20/24 10/22/24 fluoxetine .Route 10/20/24 lorazepam 0.5 mg tablet (Ativan) 0.5 mg PO BID 10/20/24 10/22/24 methylphenidate HCl .Route 4XD 10/20/24 olanzapine .Route 10/20/24 omeprazole 40 mg capsule,delayed 40 mg PO DAILY 10/20/24 10/22/24 release quetiapine 400 mg tablet (Seroquel) 400 mg PO DAILY 10/20/24 10/22/24 quetiapine 50 mg tablet (Seroquel) 50 mg PO DAILY 10/20/24 10/22/24 <Bob Pineda MD - Last Filed: 10/23/24 00:08> Allergies/adverse reactions: Allergies Allergy/AdvReac Type Severity Reaction Status Date / Time No Known Drug Allergies Allergy Verified 10/22/24 05:35 <Bob Pineda MD - Last Filed: 10/23/24 00:08> Review of Systems Status of ROS: Reports: unobtainable due to medical condition <Bob Pineda MD - Last Filed: 10/23/24 00:08> [facility] Medical History: Medical History Hyponatremia ?E87.1 - Hypo-osmolality and hyponatremia (ICD-10) OCD (obsessive compulsive disorder) ?F42.9 - Obsessive-compulsive disorder, unspecified (ICD-10) Major depressive disorder with psychotic features ?F32.3 - Major depressive disorder, single episode, severe with psychotic features (ICD-10) Hernia ?K46.9 - Unspecified abdominal hernia without obstruction or gangrene (ICD-10) <Bob Pineda MD - Last Filed: 10/23/24 00:08> Social History: Social History Smoking Status: Unknown if ever smoked <Bob Pineda MD - Last Filed: 10/23/24 00:08> Exam Narrative: Exam Narrative: EXAM GENERAL: Patient appears comfortable but delusional. EYES: No scleral icterus. ENT: Tympanic membranes and oropharynx normal. THYROID: no thyroid nodules or thyromegaly. LYMPH: No supraclavicular or cervical lymphadenopathy. SKIN: Visible skin seen during exam normal or with benign process only. EXT: No dependent lower extremity pedal edema. HEART: Regular rate and rhythm with no murmurs, rubs, or gallops. LUNGS: Clear to auscultation bilaterally with no crackles or wheezes. ABD: Soft, non tender, non distended. PSYCH: Good eye contact, speech is nonsensical. <Bob Pineda MD - Last Filed: 10/23/24 00:08> Const: Vital Signs, click to edit/add: Vital Signs - 24 hr 10/22/24 05:29 10/22/24 08:11 Temperature 97.2 F L 96.6 F L Pulse Rate [Right Pulse Oximeter] 80 81 Respiratory Rate 16 18 Blood Pressure [Ri ght Upper Arm] 172/91 H 157/79 H Pulse Oximetry 98 100 Oxygen Delivery Me thod Room Air Room Air <Bob Pineda MD - Last Filed: 10/23/24 00:08> Vital Signs, click to edit/add: Vital Signs - 24 hr 10/22/24 05:29 10/22/24 08:11 Temperature 97.2 F L 96.6 F L Pulse Rate [Right Pulse Oximeter] 80 81 Respiratory Rate 16 18 Blood Pressure [Ri ght Upper Arm] 172/91 H 157/79 H Pulse Oximetry 98 100 Oxygen Delivery Me thod Room Air Room Air <Evan Bustamante MD - Last Filed: 10/22/24 08:05> Course Course ED Course: Patient seen examined. Standard psychiatric laboratory studies collected. I do not see any major injuries. Will reassess. We do have a call into his social work nurse. <Bob Pineda MD - Last Filed: 10/23/24 00:08> Reevaluation(s) Reevaluation #1: Patient's laboratory studies return showing mild hyponatremia as well as drug screen positive for tricyclics as well as benzodiazepines. At this time will obtain mental health consultation and will attempt to understand patient's medical regiment as he did not take his medications last night or this morning. <Bob Pineda MD - Last Filed: 10/23/24 00:08> Vital Signs Vital signs: Initial Vital Signs Temperature 97.2 F L 10/22/24 05:29 Temperature Source Temporal Artery Scan 10/22/24 05:29 Pulse Rate 80 10/22/24 05:29 Pulse Rhythm Regular 10/22/24 05:29 Pulse Strength 3+ Normal 10/22/24 05:29 Respiratory Rate 16 10/22/24 05:29 Blood Pressure 172/91 H 10/22/24 05:29 Blood Pressure Mean 118 H 10/22/24 05:29 Blood Pressure Position Supine 10/22/24 05:29 Pulse Oximetry 98 10/22/24 05:29 Oxygen Delivery Method Room Air 10/22/24 05:29 Vital Signs Temperature 97.2 F L 10/22/24 05:29 Pulse Rate 80 10/22/24 05:29 Respiratory Rate 16 10/22/24 05:29 Blood Pressure 172/91 H 10/22/24 05:29 Pulse Oximetry 98 10/22/24 05:29 Oxygen Delivery Method Room Air 10/22/24 05:29 Temperature 96.6 F L 10/22/24 08:11 Pulse Rate 81 10/22/24 08:11 Respiratory Rate 18 10/22/24 08:11 Blood Pressure 157/79 H 10/22/24 08:11 Pulse Oximetry 100 10/22/24 08:11 Oxygen Delivery Method Room Air 10/22/24 08:11 <Bob Pineda MD - Last Filed: 10/23/24 00:08> Initial Vital Signs Temperature 97.2 F L 10/22/24 05:29 Temperature Source Temporal Artery Scan 10/22/24 05:29 Pulse Rate 80 10/22/24 05:29 Pulse Rhythm Regular 10/22/24 05:29 Pulse Strength 3+ Normal 10/22/24 05:29 Respiratory Rate 16 10/22/24 05:29 Blood Pressure 172/91 H 10/22/24 05:29 Blood Pressure Mean 118 H 10/22/24 05:29 Blood Pressure Position Supine 10/22/24 05:29 Pulse Oximetry 98 10/22/24 05:29 Oxygen Delivery Method Room Air 10/22/24 05:29 Vital Signs Temperature 97.2 F L 10/22/24 05:29 Pulse Rate 80 10/22/24 05:29 Respiratory Rate 16 10/22/24 05:29 Blood Pressure 172/91 H 10/22/24 05:29 Pulse Oximetry 98 10/22/24 05:29 Oxygen Delivery Method Room Air 10/22/24 05:29 Temperature 96.6 F L 10/22/24 08:11 Pulse Rate 81 10/22/24 08:11 Respiratory Rate 18 10/22/24 08:11 Blood Pressure 157/79 H 10/22/24 08:11 Pulse Oximetry 100 10/22/24 08:11 Oxygen Delivery Method Room Air 10/22/24 08:11 <Evan Bustamante MD - Last Filed: 10/22/24 08:05> Medications Administered Medications: Discontinued Medications Generic Name Dose Route Start Last Admin Trade Name Freq PRN Reason Stop Dose Admin Sodium Chloride 500 mls @ 500 mls/hr 10/22/24 07:51 10/22/24 08:07 0.9 % Sodium Chloride 500 Ml IV 10/22/24 08:50 500 mls/hr .Q1H ONE Administration Olanzapine 5 mg 10/22/24 07:51 10/22/24 08:06 Olanzapine 5 Mg/Ml Inj IM 10/22/24 07:52 5 mg ONCE ONE Administration <Bob Pineda MD - Last Filed: 10/23/24 00:08> Discontinued Medications Generic Name Dose Route Start Last Admin Trade Name Yassine PRN Reason Stop Dose Admin Sodium Chloride 500 mls @ 500 mls/hr 10/22/24 07:51 10/22/24 08:07 0.9 % Sodium Chloride 500 Ml IV 10/22/24 08:50 500 mls/hr .Q1H ONE Administration Olanzapine 5 mg 10/22/24 07:51 10/22/24 08:06 Olanzapine 5 Mg/Ml Inj IM 10/22/24 07:52 5 mg ONCE ONE Administration <Evan Bustamante MD - Last Filed: 10/22/24 08:05> Medical Decision Making MDM Narrative Medical decision making narrative: ADDENDUM 8:04 A.M. THE PATIENT CONTINUES TO BE OBVIOUSLY PSYCHOTIC, he is talking but nonsensically, he has been a little slightly more agitated. For this reason he was given IM Zyprexa 5 mg. I discussed with and [facility] who kindly accepts in transfer for med psych treatment. The patient has hyponatremia. Has positive tox screen. He has a history of OCD was psychotic features and depression. At this point I think he is in need of a medical psych placement and toxicology consult. [facility] has accepted and transfer sheets completed PE. Patient is in stable condition for transfer. Labs and other documentation will be sent with the patient. Transfer sheets completed. <Evan Bustamante MD - Last Filed: 10/22/24 08:05> Lab Data Labs: Lab Results 10/22/24 10/22/24 Range/Units 06:00 07:05 WBC 7.52 (4.50-11.00) K/uL RBC 4.65 (4.30-5.90) m/uL Hgb 13.6 (13.5-17.5) gm/dL Hct 39.3 (37.0-53.0) % MCV 85 (80-100) fL MCH 29 (26-34) pg MCHC 35 (32-36) gm/dL RDW Coeff of Savage 12.4 (11.5-15.5) % Plt Count 227 (140-440) K/uL Neut % (Auto) 88.9 H (42.0-72.0) % Lymph % (Auto) 5.9 L (20-44) % Kemper % (Auto) 4.8 (0.0-11.0) % Eos % (Auto) 0.0 (0.0-7.0) % Baso % (Auto) 0.1 (0.0-3.0) % Neut # (Auto) 6.70 (1.7-7.0) K/uL Lymph # (Auto) 0.40 L (0.90-2.90) K/uL Kemper # (Auto) 0.40 (0.00-0.90) K/UL Eos # (Auto) 0.00 (0.00-0.50) K/uL Baso # (Auto) 0.01 (0.00-0.30) K/uL Abs Immat Gran (auto) 0.02 (0.00-0.30) K/uL Imm/Tot Granulo (auto) 0.3 % Sodium 126 L (135-149) mmol/L Potassium 4.3 (3.6-5.1) mmol/L Chloride 90 L (96-114) mmol/L Carbon Dioxide 27 (20-32) mmol/L Anion Gap 9 (7-15) mEq/L BUN 18 (7-30) mg/dL Creatinine 0.8 (0.5-1.5) mg/dL Estimated Creat Clear 76.52 Estimated GFR 96 ml/min Glucose 95 (60-115) mg/dL Calcium 10.0 (8.4-10.6) mg/dL Total Bilirubin 1.3 (0.1-1.5) mg/dL AST 39 H (12-35) U/L ALT 27 (4-50) U/L Alkaline Phosphatase 95 (40-150) U/L Total Protein 7.7 (6.0-8.3) g/dL Albumin 4.5 (3.3-5.0) g/dL Salicylates < 1.0 L (1.0-10) mg/dL Urine Opiates Screen Negative (Negative) Ur Buprenorphine Scrn Negative (Negative) Ur Oxycodone Screen Negative (Negative) Urine Methadone Screen Negative (Negative) Acetaminophen < 10.0 (10.0-30.0) ug/mL Ur Barbiturates Screen Negative (Negative) U Tricyclic Antidepress POSITIVE A (Negative) Ur Phencyclidine Scrn Negative (Negative) Ur Amphetamines Screen Negative (Negative) U Methamphetamines Scrn Negative (Negative) U Benzodiazepines Scrn POSITIVE A (Negative) Urine Cocaine Screen Negative (Negative) U Marijuana (THC) Screen Negative (Negative) Ur Drug Screen Comment See Note Ethyl Alcohol < 0.01 (0.01-0.03) % <Bob Pineda MD - Last Filed: 10/23/24 00:08> Lab Results 10/22/24 10/22/24 Range/Units 06:00 07:05 WBC 7.52 (4.50-11.00) K/uL RBC 4.65 (4.30-5.90) m/uL Hgb 13.6 (13.5-17.5) gm/dL Hct 39.3 (37.0-53.0) % MCV 85 (80-100) fL MCH 29 (26-34) pg MCHC 35 (32-36) gm/dL RDW Coeff of Savage 12.4 (11.5-15.5) % Plt Count 227 (140-440) K/uL Neut % (Auto) 88.9 H (42.0-72.0) % Lymph % (Auto) 5.9 L (20-44) % Kemper % (Auto) 4.8 (0.0-11.0) % Eos % (Auto) 0.0 (0.0-7.0) % Baso % (Auto) 0.1 (0.0-3.0) % Neut # (Auto) 6.70 (1.7-7.0) K/uL Lymph # (Auto) 0.40 L (0.90-2.90) K/uL Kemper # (Auto) 0.40 (0.00-0.90) K/UL Eos # (Auto) 0.00 (0.00-0.50) K/uL Baso # (Auto) 0.01 (0.00-0.30) K/uL Abs Immat Gran (auto) 0.02 (0.00-0.30) K/uL Imm/Tot Granulo (auto) 0.3 % Sodium 126 L (135-149) mmol/L Potassium 4.3 (3.6-5.1) mmol/L Chloride 90 L (96-114) mmol/L Carbon Dioxide 27 (20-32) mmol/L Anion Gap 9 (7-15) mEq/L BUN 18 (7-30) mg/dL Creatinine 0.8 (0.5-1.5) mg/dL Estimated Creat Clear 76.52 Estimated GFR 96 ml/min Glucose 95 (60-115) mg/dL Calcium 10.0 (8.4-10.6) mg/dL Total Bilirubin 1.3 (0.1-1.5) mg/dL AST 39 H (12-35) U/L ALT 27 (4-50) U/L Alkaline Phosphatase 95 (40-150) U/L Total Protein 7.7 (6.0-8.3) g/dL Albumin 4.5 (3.3-5.0) g/dL Salicylates < 1.0 L (1.0-10) mg/dL Urine Opiates Screen Negative (Negative) Ur Buprenorphine Scrn Negative (Negative) Ur Oxycodone Screen Negative (Negative) Urine Methadone Screen Negative (Negative) Acetaminophen < 10.0 (10.0-30.0) ug/mL Ur Barbiturates Screen Negative (Negative) U Tricyclic Antidepress POSITIVE A (Negative) Ur Phencyclidine Scrn Negative (Negative) Ur Amphetamines Screen Negative (Negative) U Methamphetamines Scrn Negative (Negative) U Benzodiazepines Scrn POSITIVE A (Negative) Urine Cocaine Screen Negative (Negative) U Marijuana (THC) Screen Negative (Negative) Ur Drug Screen Comment See Note Ethyl Alcohol < 0.01 (0.01-0.03) % <Evan Bustamante MD - Last Filed: 10/22/24 08:05> Discharge Plan Discharge Clinical Impression: Chronic paranoid psychosis, Hyponatremia, Acute psychosis OCD (obsessive compulsive disorder) Qualifiers: Obsessive-compulsive disorder type: unspecified Qualified Code(s): F42.9 - Obsessive-compulsive disorder, unspecified <Bob Pineda MD - Last Filed: 10/23/24 00:08> Patient Disposition: Xfer Other <Bob Pineda MD - Last Filed: 10/23/24 00:08> Additional Instructions: Accepted [place] [facility] <Bob Pineda MD - Last Filed: 10/23/24 00:08> Prescriptions: No Action methylphenidate HCl [Ritalin LA] .Route 4XD omeprazole 40 mg capsule,delayed release(DR/EC) 40 mg PO DAILY fluoxetine .Route lorazepam [Ativan] 0.5 mg tablet 0.5 mg PO BID quetiapine [Seroquel] 400 mg tablet 400 mg PO DAILY quetiapine [Seroquel] 50 mg tablet 50 mg PO DAILY olanzapine .Route diphenhydramine HCl 50 mg capsule 50 mg PO QHS aspirin [Adult Aspirin Regimen] 81 mg tablet,delayed release (DR/EC) 81 mg PO DAILY <Bob Pineda MD - Last Filed: 10/23/24 00:08> Stand Alone Forms: [employer] Info Instructions <Bob Pineda MD - Last Filed: 10/23/24 00:08>
[2024-10-22 07:21] LABS: Cannabinoid Screen Urine Negative (Negative); Methamphetamines Screen Urine Negative (Negative); Tricyclic Antidepressant Urine POSITIVE (Negative)
[2024-10-22] MEDS: OLANZapine 5 MG/ML inj IM (08:06)
[2024-10-22] MEDS: 0.9 % SODIUM CHLORIDE 500 ML 500 ML IV (08:07)
[2024-10-22 08:11] VITALS: BP 157/79; PULSE 81; RESP 18; TEMP 35.9; O2SAT 100
== END 2024-10-22 08:52 | disposition other institution (70) ==
PROVIDERS: Emergency Provider Internal Medicine
DX: F60.0 Paranoid personality disorder (principal); F42.9 Obsessive-compulsive disorder, unspecified; E87.1 Hypo-osmolality and hyponatremia; Z51.81 Encounter for therapeutic drug level monitoring
CPT/HCPCS: 36415; 80053; 80143; 80179; 80306; 82077; 85025; 99283; 99284; J7030

== ENCOUNTER 2024-10-22 08:32 | Outpatient (CLI) | payer OTHER, SELFPAY | END 2024-10-22 08:33 | disposition home or self-care (01) | LOC: AMB 10-28 10:56 | PROVIDERS: Visit Provider Emergency Medicine | DX: F23 Brief psychotic disorder (principal); F42.9 Obsessive-compulsive disorder, unspecified; E87.1 Hypo-osmolality and hyponatremia | CPT/HCPCS: A0425; A0427 ==

== ENCOUNTER 2024-10-28 02:27 | Outpatient (CLI) | payer OTHER, SELFPAY | END 2024-10-28 02:28 | disposition home or self-care (01) | LOC: AMB 11-01 09:57 | PROVIDERS: Visit Provider Family Medicine | DX: R79.89 Other specified abnormal findings of blood chemistry (principal) | CPT/HCPCS: A0425; A0429 ==

== ENCOUNTER 2024-10-28 02:53 | Emergency (ER) | payer OTHER, SELFPAY ==
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
--- OUTSIDE RECORDS SUMMARY | 2024-10-21 10:30 | XMS_ITS | Encounter Summary ---
Author Organization [facility] Address [address] [place] [address] Care Team Providers Care Heater Operator Helper Name Role Phone PetersonBen Trish GUPTA Primary Care Provider Encounter Details Date Type Department Care Team (Late Contact Info) Description 10/21/2024 10:30 AM CDT Lab Visit [place] [address] [place] [address]. [place] [address] Encounter for long-term (current) use of medications; Psychosis, unspecified psychosis type (HRC) Social History Tobacco Use Types Packs/Day Years [...] on file documented as of this encounter Plan of Treatment Upcoming Encounters Date Type Department Care Team (Late Contact Info) Description 11/01/2024 10:00 AM CDT Appointment [place] [address] Family Medicine [address] [place] [address] Katherine Ni, ASSOCIATE PATHOLOGIST, VEHICLE BODY BUILDER [address] [place] [address] 11/15/2024 10:30 AM CDT Appointment [place] [address] Psychiatry [address] [place] [address] Jennifer Olguin MD [address] [place] [address] documented as of this encounter Procedures Procedure Name Priority Date/Time Associated Diagnosis Comments LIPID PANEL & DIRECT LDL (IF NEEDED) Routine 10/21/2024 10:38 AM CDT Encounter for long-term (current) use of medications TSH, SENSITIVE Routine 10/21/2024 10:38 AM CDT Encounter for long-term (current) use of medications BASIC METABOLIC PANEL Routine 10/21/2024 10:38 AM CDT Psychosis, unspecified psychosis type (HRC) Encounter for long-term (current) use of medications HGB A1C Routine 10/21/2024 10:38 AM CDT Encounter for long-term (current) use of medications documented in this encounter Results * TSH (10/21/2024 10:38 AM CDT) [facility] TSH, Sensitive 1.01 0.30 - 4.50 uIU/mL 10/21/2024 2:11 PM CDT [facility] Blood Venipuncture / Unknown 10/21/2024 10:38 AM CDT 10/21/2024 10:38 AM CDT us Jennifer Olguin MD LAB_1 Final Result [facility] CLIA: [id number] [address] [place] [address], [facility] * (ABNORMAL) Basic Metabolic Panel (10/21/2024 10:38 AM CDT) Sodium 130(L) 136 - 145 mmol/L 10/21/2024 11:53 AM [place] [address] [facility] Potassium 4.1 3.5 - 5.1 mmol/L 10/21/2024 11:53 AM [place] [address] [facility] Chloride 96(L) 98 - 109 mmol/L 10/21/2024 11:53 AM [place] [address] [facility] CO2 29 20 - 29 mmol/L 10/21/2024 11:53 AM [place] [address] [facility] Anion Gap 5 6 - 16 mmol/L 10/21/2024 11:53 AM [place] [address] [facility] Calcium 9.0 8.4 - 10.4 mg/dL 10/21/2024 11:53 AM [place] [address] [facility] BUN 9 7 - 26 mg/dL 10/21/2024 11:53 AM [place] [address] [facility] Creatinine 0.83 0.73 - 1.18 mg/dL 10/21/2024 11:53 AM [place] [address] [facility] Glucose 106(H) 70 - 100 mg/dL 10/21/2024 11:53 AM [place] [address] [facility] Comment:The given reference range is for the fasting state. Non-fasting reference range for glucose is 70 - 180 mg/dL. GFR, Estimated >60 >60 mL/min/1.7 3m2 10/21/2024 11:53 AM [place] [address] [facility] Hours Fasting 1.0 8 - 12 Hours 10/21/2024 11:53 AM [place] [address] [facility] Blood Venipuncture / Unknown 10/21/2024 10:38 AM CDT 10/21/2024 10:38 AM CDT us Jennifer Olguin MD LAB_1 Final Result [place] [address] [facility] CLIA: [id number] [address] [place] [phone], [facility] * Lipid Panel and Direct LDL(If Needed) (10/21/2024 10:38 AM CDT) [facility] Cholesterol 157 0 - 199 mg/dL 10/21/2024 11:53 AM [place] [address] [facility] Triglyceride 46 <=149 mg/dL 10/21/2024 11:53 AM [place] [address] [facility] HDL Cholesterol 51 >=40 mg/dL 11:53 AM [place] [address] [facility] LDL, Calculated 97 <130 mg/dL 11:53 AM [place] [address] [facility] Non HDL Chol, Calculated 106 <=159 mg/dL 10/21/2024 11:53 AM [place] [address] [facility] Cholesterol/HDL Ratio 3.1 <=5.0 10/21/2024 11:53 AM [place] [address] [facility] Hours Fasting 1.0 8 - 12 Hours 10/21/2024 11:53 AM [place] [address] [facility] Blood Venipuncture / Unknown 10/21/2024 10:38 AM CDT 10/21/2024 10:38 AM CDT us Jennifer Olguin MD LAB_1 Final Result [place] [address] [facility] CLIA: [id number] [address] [place] [phone] * (ABNORMAL) Hgb A1C (10/21/2024 10:38 AM CDT) [facility] Hemoglobin A1C (Rapid) 5.8(H) <=5.6 % 10/21/2024 11:01 AM [place] [address] [facility] Estimated Average Glucose (Calc) 120 < 117 mg/dL 10/21/2024 11:01 AM [place] [address] [facility] Comment:Estimated average gl ucose (eAG) converts A1c into glucose units (mg/dL) and estimates average glucose over the past approximately 3 months. The eAG reference interval (<117 mg/dL) corresponds to an A1c of <5.7%. Blood Venipuncture / Unknown 10/21/2024 10:38 AM CDT 10/21/2024 10:38 AM CDT Narrative [place] [address] [facility] - 10/21/2024 11:01 AM CDT For patients not previously diagnosed with diabetes: 5.7-6.4%: Increased risk for diabetes 6.5% and greater: Diagnostic for diabetes For patients diagnosed with diabetes: <8.0%: Goal of therapy for ages 18-75 Clinicians may recommend a higher or lower goal for specific individuals. The test method used for this Hemoglobin A1c result can experience interference from elevated hemoglobin and other hemoglobin variants. In patients with results that do not correlate clinically, contact the lab for further direction. us Jennifer Olguin MD LAB_1 Final Result [place] [address] [facility] CLIA: [id number] [address] [place] [phone], [facility] documented in this encounter Visit Diagnoses Diagnosis Encounter for long-term (current) use of medications Encounter for long-term (current) use of other medications Psychosis, unspecified psychosis type (HRC) documented in this encounter Care Teams Heater Operator Helper Relationship Specialty Start Date End Date Ben Peterson DO [address] [place] [address] PCP - General Family Practice 10/02/23 documented as of this encounter
--- OUTSIDE RECORDS SUMMARY | 2024-10-28 02:56 | XMS_ITS | Clinical Summary ---
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
--- OUTSIDE RECORDS SUMMARY | 2024-10-28 02:56 | XMS_ITS | Encounter Summary ---
Author Organization [facility] Address [address] [place] [address] Care Team Providers Care Reed Cleaner Name Role Phone Ben Peterson Primary Care Provider [phone] Reason for Visit * Reason Comments Refill Encounter Details Date Type Department Care Team (Late st Contact Info) Description 09/12/2024 Refill [facility] 3800 Psychiatry 3800 [facility] [place], [place] [phone] Jennifer Olguin MD [address] [place], [place] [phone] Refill Social History Tobacco Use Types Packs/Day Years [...] as of this encounter Nursing Notes * Naomi Soto RN - 09/13/2024 4:04 PM CDT Ativan rx pended. documented in this encounter Plan of Treatment Upcoming Encounters Date Type Department Care Team (Late st Contact Info) Description 11/01/2024 10:00 AM CDT Appointment [place] [address] Family Medicine [address] [place] [address] Katherine Ni, HERBARIUM CURATOR, MEDICAL TECHNOLOGIST CHEMISTRY [address] [place] [address] 11/15/2024 10:30 AM CDT Appointment [facility] 3800 Psychiatry 38[address] [facility] [place], [place] [phone] Jennifer Olguin MD [address] [place] [address] documented as of this encounter Visit Diagnoses Not on filedocumented in this encounter Care Teams Reed Cleaner Relationship Specialty Start Date End Date Ben Peterson DO [address] [address] PCP - General Family Practice 10/02/23 documented as of this encounter
--- OUTSIDE RECORDS SUMMARY | 2024-10-28 02:56 | XMS_ITS | Encounter Summary ---
Author Organization [facility] Address [address] [place] [address] Care Team Providers Care Controls Technician Name Role Phone Nicholas Ben Trish GUPTA Primary Care Provider [phone] Encounter Details Date Type Department Care Team (Late st Contact Info) Description 10/26/2024 Results Follow-Up [place] [address] [place] [address]. [place], [place] [phone] Jennifer Olguin MD [address] [place], [place] [phone] Social History Tobacco Use Types Packs/Day Years [...] on file documented as of this encounter Progress Notes * Jennifer Olguin MD - 10/26/2024 4:25 PM CDT The sodium has been corrected since this result with hospitalization the next day. Limiting water consumption as discussed in the clinic and at the hospital is very important. documented in this encounter Plan of Treatment Upcoming Encounters Date Type Department Care Team (Late st Contact Info) Description 11/01/2024 10:00 AM CDT Appointment [place] [address] Family Medicine [address] [place] [address] Katherine Ni, AIR INTELLIGENCE SPECIALIST, FOUNTAIN ATTENDANT [address] [place] [address] 11/15/2024 10:30 AM CDT Appointment [facility] 3800 Psychiatry 3800 [facility] [place], [place] [phone] Jennifer Olguin MD [address] [place] [address] documented as of this encounter Visit Diagnoses Not on filedocumented in this encounter Care Teams Controls Technician Relationship Specialty Start Date End Date Ben Peterson DO [address] [facility] [place] [address] PCP - General Family Practice 10/02/23 documented as of this encounter
--- OUTSIDE RECORDS SUMMARY | 2024-10-28 02:56 | XMS_ITS | Encounter Summary ---
Author Organization [facility] Address [address] [place] [address] Care Team Providers Care Heavy Equipment Rental Manager Name Role Phone Ben Peterson Primary Care Provider [phone] Reason for Visit * Reason Comments Medication Questions Encounter Details Date Type Department Care Team (Late st Contact Info) Description 10/26/2024 Telephone [facility] 3800 Psychiatry [address] [facility] [place] [address] Jennifer Olguin MD [address] [place] [address] Medication Questions Social History Tobacco Use Types Packs/Day Years [...] as of this encounter Nursing Notes * Jennifer Olguin MD - 10/27/2024 11:23 AM CDT Information from recent hospitalization reviewed in Care Everywhere. Nothing additional at this time * Blanka Baker RN - 10/26/2024 4:06 PM CDT Juan Jose states he was hospitalized a day or two after the last visit at [place] [facility] then transferred to [facility] [place] due to low sodium and disorientation. He is mow on dietary changes and fluid restriction. Nochanges were made to his medication. Last night he took Luvox 200 mg at bedtime (forgot he received afternoon dose at the hospital) Also, took Seroquel 450 mg at bedtime. Today he took Luvox 100 mg in the morning and skipped the noon dose because he took 200 mg last night. Does not remember if he took Seroquel this morning. Reviewed with Juan Jose medications per Dr Olguin. He repeated them back twice. Asked him if there was someone that could help him set up his meds. Stated he could do it. He has daily pill containers. He plans to take Luvox and Seroquel as directed. Encouraged Juan Jose to call anytime if he has a question or concern. * Imani Moncada - 10/26/2024 3:46 PM CDT Patient returned nurse call. Please call back * Blanka Baker RN - 10/26/2024 3:40 PM CDT Left message to return call * Jennifer Olguin MD - 10/26/2024 3:24 PM CDT Unless it was changed over the weekend (since our visit on 10/21/24) his Luvox should be 100 mg TID as per the plan from my last visit with him. If he took 100 mg this morning then he should take 100 mg this afternoon and 100 mg at bedtime. Also he takes Seroquel 400 mg at bedtime. He should also take 50 mg TID. The last dose of the Seroquel 50 mg should be taken at bedtime along with the 400 mg of the Seroquel. This is based on my last visit so if there has been a change since then from a hospital stay, please let me know. * Jennifer Olguin MD - 10/26/2024 2:52 PM CDT Are those records up loaded to his chart? I don't see anything new since I last saw him on 10/21/24.Where was he hospitalized? * Blanka Baker RN - 10/26/2024 2:08 PM CDT Most recent records found from 10/21/24 hospitalization. Please advise dosage and directions for Luvox and Seroquel and nurse will contact Juan Jose. Thanks * Rani Alcala I - 10/26/2024 10:58 AM CDT Pt just got out of the hospital yesterday afternoon, but was given a dose of his luvox shortly before he left. Pt then took 2 before he went to bed, and then another 100mg dose this morning. Pt is afraid that they might have been taken too close together since he got the hospital schedule and his typical med schedule mixed up. Was wondering if he should still take afternoon dose like he had been at hospital or if he should just wait for bedtime again to resume taking? Pt would just like to clarify or confirm what type of schedule he should be using to take his fluvoxaMINE (LUVOX) 100 MG tablet ? Pt would also like to have his seroquel directions re-explained to him, he is a little confused about how he is supposed to take them. Please call again, if he doesn't answer 1st time since he can't access to verify if he missed a call. documented in this encounter Plan of Treatment Upcoming Encounters Date Type Department Care Team (Late st Contact Info) Description 11/01/2024 10:00 AM CDT Appointment [place] [address] Family Medicine [address] [place] [address] Katherine Ni, BEAUTICIAN APPRENTICE, RADIO DISC JOCKEY [address] [place] [address] 11/15/2024 10:30 AM CDT Appointment [facility] 3800 Psychiatry [address]00 [facility] [place] [address] Jennifer Olguin MD 38[address] [place] [address] documented as of this encounter Visit Diagnoses Not on filedocumented in this encounter Care Teams Heavy Equipment Rental Manager Relationship Specialty Start Date End Date Ben Peterson DO [address] [place] [address] PCP - General Family Practice 10/02/23 documented as of this encounter
--- OUTSIDE RECORDS SUMMARY | 2024-10-28 02:56 | XMS_ITS | Encounter Summary ---
Author Organization [facility] Address [address] [place] [address] Care Team Providers Care Bridge Gang Worker Name Role Phone Ben Peterson Primary Care Provider [phone] Reason for Visit * Reason Onset Date Comments Refill 09/30/2024 Encounter Details Date Type Department Care Team (Late Contact Info) Description 09/30/2024 Refill [place] [address] Psychiatry [address]00 [facility]. [place], [place] [phone] Jennifer Olguin MD [address] [place], [place] [phone] Refill Social History Tobacco Use Types Packs/Day [...] Info) Description 11/01/2024 10:00 AM CDT Appointment [address] Medicine [address] [place] [phone] Katherine Ni, POWER PLANT OPERATOR APPRENTICE, CATH LAB RADIOLOGY TECHNICIAN [address] [place] [address] 11/15/2024 10:30 AM CDT Appointment [place] [address] [place] [address]. [place], [place] [phone] Jennifer Olguin MD [address] [place] [address] documented as of this encounter Visit Diagnoses Not on filedocumented in this encounter Care Teams Bridge Gang Worker Relationship Specialty Start Date End Date Ben Peterson DO [address] [place] [address] PCP - General Family Practice 10/02/23 documented as of this encounter
--- OUTSIDE RECORDS SUMMARY | 2024-10-28 02:56 | XMS_ITS | Encounter Summary ---
Author Organization Formerly [facility], [facility] Address [address] [place] [address] Care Team Providers Care Construction Worker Name Role Phone Ben Peterson Trish GUPTA Primary Care Provider [phone] Reason for Visit * Reason Onset Date Comments Refill 10/11/2024 Encounter Details Date Type Department Care Team (Late st Contact Info) Description 10/11/2024 Refill [place] [address] Psychiatry [address] [facility]. [place], [place] [address] Jennifer Olguin MD [address] [place], [place] [phone] Refill Social History Tobacco Use Types Packs/Day [...] as of this encounter Nursing Notes * Albina Stout - 10/14/2024 9:06 AM CDT Medication Refill - Overdue for Visit Called patient, was: Unable to reach patient 2nd call attempted. Unsuccessful in reaching patient. Frontline: Route to clinician identified in nursing documentation below Clinician Action: Unsuccessful in reaching patient to schedule, requests refill. Recommend using Refuse All quick action in toolbar, to address request. * Angelique Santana - 10/11/2024 5:56 PM CDT Pending Ritalin to Jennifer Olguin MD for review and signature. CHARGE AUTHORIZER last fill: 09/13/24 for 30 days Last appointment: 08/18/24 Next appointment: 11/15/24 Last in person appointment 08/18/24 In State Prescription? yes Script pended. Height Weight taken within last 6 months for under 16? BP and Pulse taken within last 6 months (everyone)? yes BP Readings from Last 3 Encounters: 08/18/24 (!) 142/73 01/27/24 (!) 155/85 12/16/23 (!) 158/90 Pulse Readings from Last 3 Encounters: 08/18/24 79 01/27/24 85 12/16/23 88 Wt Readings from Last 3 Encounters: 08/18/24 188 lb (85.3 kg) 01/27/24 196 lb (88.9 kg) 10/02/23 194 lb (88 kg) Ht Readings from Last 3 Encounters: 10/02/23 5' 11.5 (1.816 m) 07/28/23 6' (1.829 m) 05/30/23 5' 11.5 (1.816 m) documented in this encounter Plan of Treatment Upcoming Encounters Date Type Department Care Team (Late st Contact Info) Description 11/01/2024 10:00 AM CDT Appointment [place] [address] Family Medicine [address] [place] [address] Katherine Ni, RUBBER FACTORY WORKER, SORTING MACHINE OPERATOR [address] [place] [address] 11/15/2024 10:30 AM CDT Appointment [facility] 3800 Psychiatry 38[address] [facility] [place] [address] Jennifer Olguin MD 38[address] [place] [address] documented as of this encounter Visit Diagnoses Diagnosis Attention-deficit hyperactivity disorder, predominantly inattentive type (HRC) Attention deficit disorder with hyperactivity documented in this encounter Care Teams Construction Worker Relationship Specialty Start Date End Date Ben Peterson DO [address] [place] [address] PCP - General Family Practice 10/02/23 documented as of this encounter
--- OUTSIDE RECORDS SUMMARY | 2024-10-28 02:56 | XMS_ITS | Encounter Summary ---
Author Organization [facility] Address [address] [address] Care Team Providers Care Cone Worker Name Role Phone Ben Petersno DO Primary Care Provider [phone] Reason for Visit * Reason Onset Date Comments Refill 09/30/2024 omeprazole (PRIL OSEC) 20 MG capsule Encounter Details Date Type Department Care Team (Late st Contact Info) Description 09/30/2024 Refill [facility] [address] [facility]. [place], [place] [phone] Ben Peterson DO [address] [place], [place] [phone] Refill (omeprazole (PRILOSEC) 20 MG capsule) Social [...] CDT Further Assistance Needed on Refill from Ophthalmology Assistant Patient is due for Qualifying Visit Medication [...] was found) Next scheduled visit: [facility] Embedded Refills, Reference: [id number], 09/30/2024 1:11:44 PM CASIET, Abdirahman: VAN Refill Centralized Services - Primary Care [[id number]] ([id number]) documented in this encounter Plan of Treatment Upcoming Encounters Date Type Department Care Team (Late st Contact Info) Description 11/01/2024 10:00 AM CDT Appointment [place] [address] Family Medicine [address] [place] [phone] Katherine Ni, RNP, MANAGER OF LOSS PREVENTION OPERATIONS [address] [place] [address] 11/15/2024 10:30 AM CDT Appointment [place] [address] [place] [address]. [place], [place] [phone] Jennifer Olguin MD [address] [place] [address] documented as of this encounter Visit Diagnoses Diagnosis Gastroesophageal reflux disease without esophagitis Esophageal reflux documented in this encounter Care Teams Cone Worker Relationship Specialty Start Date End Date Ben Peterson DO [address] [place] [address] PCP - General Family Practice 10/02/23 documented as of this encounter
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
--- OUTSIDE RECORDS SUMMARY | 2024-10-28 02:56 | XMS_ITS | Encounter Summary ---
Author Organization [facility] Address [address] [place] [address] Care Team Providers Care Planishing Press Operator Name Role Phone Ben Peterson Primary Care Provider [phone] Reason for Visit * Reason Onset Date Comments Refill 09/08/2024 Encounter Details Date Type Department Care Team (Late st Contact Info) Description 09/08/2024 Refill [place] [address] Psychiatry 3800 [facility]. [place], [place] [phone] Jennifer Olguin MD [address] [place], [place] [phone] Refill Social History Tobacco Use Types Packs/Day [...] as of this encounter Nursing Notes * Robby Monroy, RN - 09/09/2024 7:12 AM CDT Pending Ritalin to Dr. Olguin for review and signature. Last Rx: 08/11/24 for 30 days Last appt: 08/18/2024 Next appt: 11/15/2024 Last in person appt: 08/18/2024 In State Prescription? Yes * Gena Dash - 09/08/2024 11:03 AM CDT [facility] send Rx [facility] documented in this encounter Plan of Treatment Upcoming Encounters Date Type Department Care Team (Late st Contact Info) Description 11/01/2024 10:00 AM CDT Appointment [place] [address] Family Medicine [address] [place] [phone] Katherine Ni, CAREER CONSULTANT, UNIT SUPERVISOR [address] [place] [address] 11/15/2024 10:30 AM CDT Appointment [place] [address] [place] [address]. [place] [address] Jennifer Olguin MD [address] [place] [address] documented as of this encounter Visit Diagnoses Diagnosis Attention-deficit hyperactivity disorder, predominantly inattentive type (HRC) Attention deficit disorder with hyperactivity documented in this encounter Care Teams Planishing Press Operator Relationship Specialty Start Date End Date Ben Peterson DO [address] [place] [address] PCP - General Family Practice 10/02/23 documented as of this encounter
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
--- OUTSIDE RECORDS SUMMARY | 2024-10-28 02:56 | XMS_ITS | Encounter Summary ---
Author Organization formerly [facility] Address [address], [place] [address] Care Team Providers Care Tester/Lift Trucker Name Role Phone Ben Peterson DO Primary Care Provider [phone] Encounter Details Date Type Department Care Team (Late st Contact Info) Description 10/27/2024 Patient Outreach [facility] Office of [facility] Health [address] [place] [phone] Janine Peterson RN Social History Tobacco Use Types Packs/Day Years [...] as of this encounter Progress Notes * Janine Peterson RN - 10/27/2024 8:43 AM CDT Transitional Care Management (TCM) Post-Discharge Outreach Appointment Details: Appointment Date: 11/01/24 TCM Appointment Complexity: moderate risk - to be seen within 14 days Rationale: One acute illness with systemic symptoms TCM appointment scheduled within appropriate timeframe. Admission Details: Date of Admission: 10/22/24 Reason for Admission: Hyponatremia Is this a readmission (patient had another hospitalization in the past 30 days)? No Date of Discharge: 10/25/24 Location of Discharge: Outside Hospital Medication changes during hospitalization: No change. Discussion/Actions: Spoke with patient/caregiver and completed TCM post- discharge outreach. Connected with patient. Appears pleasant and doing well. Encouraged patient to avoid excessive water intake. Patient reports he normally drinks Gatorade and powerade and drinks about 30 fl oz of water daily. Following instructions per psych provider on how to take his medications. Follow Ups: 11/01 - TCM 11/15 -Psych FU Were medication changes reviewed with patient/caregiver? Yes Orders, referrals or follow-up recommendations as a result of this call: Care Consultants Orders placed by nurse: None. Orders still needed from clinician: None. Follow Up for Clinician: No needs identified at this time. See TCM Adv Assessment flowsheet for additional details. Care Management Next Steps: Follow up in 2 weeks. Janine Peterson RN 10/27/2024, 9:47 AM documented in this encounter Plan of Treatment Upcoming Encounters Date Type Department Care Team (Late st Contact Info) Description 11/01/2024 10:00 AM CDT Appointment [place] [address] Family Medicine [address] [place] [address] Katherine Ni, MODELING AGENCY MANAGER, CRYSTAL SLICER [address] [place] [address] 11/15/2024 10:30 AM CDT Appointment [place] [address] Psychiatry [address] [facility] [place] [address] Jennifer Olguin MD [address] [place] [address] documented as of this encounter Visit Diagnoses Not on filedocumented in this encounter Care Teams Tester/Lift Trucker Relationship Specialty Start Date End Date Ben Peterson DO [address] [place] [address] PCP - General Family Practice 10/02/23 documented as of this encounter
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
--- OUTSIDE RECORDS SUMMARY | 2024-10-28 02:57 | XMS_ITS | Clinical Summary ---
Author Organization Formerly [facility] Address [address], [place] [address] Care Team Providers Care Assayer Name Role Phone PetersonBen Trish GUPTA Primary Care Provider [phone] Source Comments You are receiving this document as you are listed as the primary care provider,follow-up provider, or the patient has been referred to you for consultation.This is in compliance with the Medicare and[facility] EHR Incentive Program,which states Providers who transition their patient to another setting of careor provider of care or refers their patient to another provider of care shouldprovide summary care record for each transition of care or referral. [facility] Allergies No known active allergies Medications diphenhydrAMINE (BENADRYL) 25 MG tabletIndication s:VALENTIN COLEMAN July 24, 2015 12:54 PM 2 tab every [...] Resolved Date Impaired fasting glucose 09/18/2011 Encounters Date Type Department Care Team Description 10/27/2024 Patient Outreach [facility] [address] [place] [address] Jnaine Peterson RN 10/26/2024 Results Follow-Up [facility] [address] Psych[address]ry [address] [facility] [place] [address] Jennifer Olguin MD 10/26/2024 Telephone [facility] [address] Psych[address] [facility] [place] [address] Jennifer Olguin MD Medication Questions 10/21/2024 10:30 AM CDT Lab Visit [facility] 38[address] Laboratory [address] [facility] [place] [address] Encounter for long-term (current) use of medications; Psychosis, unspecified psychosis type (HRC) 10/21/2024 10:00 AM CDT Office Visit [address] [place] [address] Jennifer Ogluin MD Psychosis, unspecified psychosis type (HRC) (Primary Dx); Mixed obsessional thoughts and acts; SINA (generalized anxiety disorder) (HRC); Severe episode of recurrent major depressive disorder, with psychotic features (HRC); Attention-deficit hyperactivity disorder, predominantly inattentive type (HRC); Encounter for long-term (current) use of medications 10/20/[address] [place] [address] Jennifer Olguin MD Other 10/20/[address] [place] [address] Jennifer Olguin MD Concerns; HALLUCINATIONS; PARANOIA; DELUSIONS 10/11/[address] [place] [address] Jennifer Olguin MD Refill 10/05/[address] [place] [address] Jennifer Olguin MD Care Coordination; UPDATE 10/05/2024 Refill [facility] [address], [address] [place] [address] Clarice Acosta, YEAST STACKER, ALGOLOGIST Refill (omeprazole (PRILOSEC) 20 MG capsule [Pharmacy Med Name: OMEPRAZOLE DR 20 MG CAPSULE]) 09/30/2024 Refill [place] [address] [place] [address]. [place] [address] Jennifer Olguin MD Refill 09/30/2024 Refill [facility] [address] [facility]. [place], [place] [id number] Ben Peterson, DO Refill (omeprazole (PRILOSEC) 20 MG capsule) 09/12/2024 Refill [place] [address] [place] [address]. [place] [address] Jennifer Olguin MD Refill 09/08/2024 Refill [place] [address] [place] [address]. [place] [address] Jennifer Olguin MD Refill 09/03/2024 Refill [facility] [address], [facility] [address] [place] [address] Leeroy Shelton MD Refill (omeprazole (PRILOSEC) 20 MG capsule [Pharmacy Med Name: OMEPRAZOLE DR 20 MG CAPSULE]) 08/18/2024 11:30 AM CDT Office Visit [address] [place] [address] Jennifer Olguin MD MDD (major depressive disorder), recurrent, severe, with psychosis (HRC) (Primary Dx); Mixed obsessional thoughts and acts; SINA (generalized anxiety disorder) (HRC); Attention-deficit hyperactivity disorder, predominantly inattentive type (HRC); Encounter for long-term (current) use of medications 08/17/2024 Telephone [facility] [address] [facility]. [place], [place] [id number] Ben Peterson, DM/VASC/HTN Registry Call 1; DM/VASC/HTN Registry Call 2 08/09/2024 Refill [place] [address] [place] [address]. [place] [address] Jennifer Olguin MD Refill from Last 3 Months Immunizations Immunization Administration Dates Next Due Influenza IIV4 (Quadrivalent) 0.5mL (37260) 12/09 Influenza IIV4 (Quadrivalent) Fluzone, 65+ Yrs [...] Info) Description 11/01/2024 10:00 AM CDT Appointment [place] [id number] [place] [address] [facility] [place] [address] Katherine Ni, YEAST STACKER, ALGOLOGIST [address] [place] [address] 11/15/2024 10:30 AM CDT Appointment [place] [address] [address] [facility] [place] [address] Jennifer Olguin MD [address] [place], [place] [address] Health Maintenance Due Date Last Done Comments [...] COLON, SCREENING/DIAGNOSTI C Routine 03/11/2018 2:47 PM EARTH MOVER Polyp of colon, unspecified part of colon, unspecified type from Last 3 Months or Most Recently Relevant to Health Maintenance Results * Lipid Panel and Direct LDL(If Needed) (10/21/2024 10:38 AM CDT) Cholesterol 157 0 - 199 mg/dL 10/21/2024 11:53 AM CDT [facility] [address] [facility] Triglyceride 46 <=149 mg/dL 10/21/2024 11:53 AM CDT [place] [place] [address] [facility] HDL Cholesterol 51 >=40 mg/dL 11:53 AM CDT [place] [address] [facility] LDL, Calculated 97 <130 mg/dL 11:53 AM CDT [place] [address] [facility] Non HDL Chol, Calculated 106 <=159 mg/dL 10/21/2024 11:53 AM CDT [place] [place] [address] [facility] Cholesterol/HDL Ratio 3.1 <=5.0 10/21/2024 11:53 AM CDT [facility] [facility] [facility] Hours Fasting 1.0 8 - 12 Hours 10/21/2024 11:53 AM CDT [facility] [place] [address] [facility] Blood Venipuncture / Unknown 10/21/2024 10:38 AM CDT 10/21/2024 10:38 AM CDT us Jennifer Olguin MD LAB_1 Final Result [place] [address] [facility] CLIA: [id number] [address] [place] [phone], [facility] * TSH (10/21/2024 10:38 AM CDT) TSH, Sensitive 1.01 0.30 - 4.50 uIU/mL 10/21/2024 2:11 PM [facility] Blood Venipuncture / Unknown 10/21/2024 10:38 AM CDT 10/21/2024 10:38 AM CDT us Jennifer Olguin MD LAB_1 Final Result [facility] CLIA: [id number] [address] * (ABNORMAL) Basic Metabolic Panel (10/21/2024 10:38 AM CDT) Sodium 130(L) 136 - 145 mmol/L 10/21/2024 11:53 AM [place] [address] [facility] Potassium 4.1 3.5 - 5.1 mmol/L 10/21/2024 11:53 AM [place] [address] [facility] Chloride 96(L) 98 - 109 mmol/L 10/21/2024 11:53 AM [place] [address] [facility] CO2 29 20 - 29 mmol/L 10/21/2024 11:53 AM [place] [address] [facility] Anion Gap 5 6 - 16 mmol/L 10/21/2024 11:53 AM [place] [address] [facility] Calcium 9.0 8.4 - 10.4 mg/dL 10/21/2024 11:53 AM [place] [address] [facility] BUN 9 7 - 26 mg/dL 10/21/2024 11:53 AM [place] [address] [facility] Creatinine 0.83 0.73 - 1.18 mg/dL 10/21/2024 11:53 AM [place] [address] [facility] Glucose 106(H) 70 - 100 mg/dL 10/21/2024 11:53 AM [place] [address] [facility] Comment:The given reference range is for the fasting state. Non-fasting reference range for glucose is 70 - 180 mg/dL. GFR, Estimated >60 >60 mL/min/1.7 3m2 10/21/2024 11:53 AM [place] [address] [facility] Hours Fasting 1.0 8 - 12 Hours 10/21/2024 11:53 AM [place] [address] [facility] Blood Venipuncture / Unknown 10/21/2024 10:38 AM CDT 10/21/2024 10:38 AM CDT Jennifer Olguin MD LAB_1 Final Result Performing Organization Address [facility] Phone Number [place] [address] [facility] CLIA: [id number] [address] [place] [phone] * (ABNORMAL) Hgb A1C (10/21/2024 10:38 AM CDT) [facility] Hemoglobin A1C (Rapid) 5.8(H) <=5.6 % 10/21/2024 11:01 AM CDT [place] [address] [facility] Estimated Average Glucose (Calc) 120 < 117 mg/dL 10/21/2024 11:01 AM CDT [place] [address] [facility] Comment:Estimated average gl ucose (eAG) converts A1c into glucose units (mg/dL) and estimates average glucose over the past approximately 3 months. The eAG reference interval (<117 mg/dL) corresponds to an A1c of <5.7%. Blood Venipuncture / Unknown 10/21/2024 10:38 AM CDT 10/21/2024 10:38 AM CDT Narrative [facility] [address] [facility] - 10/21/2024 11:01 AM CDT For [...] clinically, contact the lab for further direction. Jennifer Olguin MD LAB_1 Final Result Performing Organization Address [facility] de Phone Number [place] [address] [facility] CLIA: [id number] [address] [place] [phone] * Albumin/Creatinine Ratio,Random Urine (12/25/2023 11:27 AM CDT) Albumin/Creati nine Ratio, Urine, Random 3 <30 mg/g 12/25/2023 7:18 PM CDT [facility] Albumin, Urine, Random 2.4 mg/L 12/25/2023 7:18 PM CDT [facility] Creatinine, Urine, Random 72 >20 mg/dL mg/dL 12/25/2023 7:18 PM CDT [facility] Urine Non-blood Collection / Unknown 12/25/2023 11:27 AM CDT 12/25/2023 11:27 AM CDT Ben Peterson DO LAB_1 Final Result Performing Organization Address [facility]/ZIP Co de Phone Number [facility] [address] * Prostatic Specific Antigen (Screen) (10/28/2022 10:14 AM CDT) Prostatic Specific Antigen 0.4 0.0 - 4.0 ng/mL 10/28/2022 4:02 PM CDT [facility] Blood Venipuncture / Unknown 10/28/2022 10:14 AM CDT 10/28/2022 10:14 AM CDT Narrative [facility] - 10/28/2022 4:02 PM CDT The [employer] PSA Chemiluminescent immunoassay is used. Results obtained with different test methods or kits cannot be used interchangeably. Leeroy Shelton MD LAB_1 Final Result [facility] [address] [place], [place] [id number] [place] [address] * Hepatitis C Antibody, with Reflex (05/27/2018 12:21 PM CDT) Hepatitis C Antibody Nonreactive Nonreactive PN SOFT 05/27/2018 12:2 1 PM CDT 05/27/2018 3:27 PM CDT Narrative PN SOFT - 05/27/2018 4:12 PM CDT Performed at [facility], [address] [facility], [place] [address] CLIA number [id number] us Chase Ho MD LAB_1 Final Resu lt [facility] [address] [place] [address] * Endoscopy, colon, diagnostic (03/11/2018 2:47 PM EARTH MOVER) Anatomical Region Laterality Modality Other 03/11/2018 2:47 PM EARTH MOVER Narrative 03/11/2018 2:47 PM EARTH MOVER Patient Name: Juan Jose Szymanski Procedure Date: [...] and oxygen saturations were monitored continuously. The [id number] was introduced through the anus and advanced [...] pathology results. Procedure Code(s): --- Professional --- 38014, Colonoscopy, flexible; with ablation of tumor(s), polyp(s), or other lesion(s) (includes pre- and post-dilation and guide wire passage, when performed) Diagnosis Code(s): --- Professional --- Z86.010, Personal history of colonic polyps K63.89, Other specified diseases of intestine Z09, Encounter for follow-up examination after completed treatment for conditions other than malignant neoplasm CPT copyright 2016 [employer]. All rights reserved. The codes documented in this report are preliminary and upon death clearance coordinator review may be revised to meet current [...] and oxygen saturations were monitored continuously. The [id number] was introduced through the anus and advanced [...] pathology results. Procedure Code(s): --- Professional --- 08161, Colonoscopy, flexible; with ablation of tumor(s), polyp(s), or other lesion(s) (includes pre- and post-dilation and guide wire passage, when performed) Diagnosis Code(s): --- Professional --- Z86.010, Personal history of colonic polyps K63.89, Other specified diseases of intestine Z09, Encounter for follow-up examination after completed treatment for conditions other than malignant neoplasm CPT copyright 2016 [employer]. All rights reserved. The codes documented in this report are preliminary and upon death clearance coordinator review may be revised to meet current compliance requirements. Lara Suarez MD 03/11/2018 3:57:55 PM This document has been electronically signed. Number of Addenda: 0 Note Initiated On: 03/11/2018 2:47 PM Endoscopy Report Lara Suarez MD ET GI PROCEDURE ORDERABLE S Final Result from Last 3 Months or Most Recently Relevant to Health Maintenance Insurance MEDICARE ADVANTAGE MEDICARE ADVANTAGE Care Teams Assayer Relationship Specialty Start Date End Date Ben Peterson DO [address] [place] [address] PCP - General Family Practice 10/02/23
--- OUTSIDE RECORDS SUMMARY | 2024-10-28 02:57 | XMS_ITS | Encounter Summary ---
Author Organization [facility] Address [address] [facility] 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
--- OUTSIDE RECORDS SUMMARY | 2024-10-28 02:57 | XMS_ITS | Encounter Summary ---
Author Organization [facility] Address [address], [place] [address] Care Team Providers Care Fire Captain Marine Name Role Phone Ben Peterson DO Primary Care Provider [phone] Reason for Visit * Reason Comments Refill omeprazole (PRILOSEC ) 20 MG capsule [Pharmacy Med Name: OMEPRAZOLE DR 20 MG CAPSULE] Encounter Details Date Type Department Care Team (Late st Contact Info) Description 10/05/2024 Refill [place] [facility] [address] [facility], [facility] [address] [place] [address] Clarice Acosta, DOUGHNUT MAKER, GLOBAL EXPANSION SALES DIRECTOR [address] [address] [facility] [place] [address] Refill (omeprazole (PRILOSEC) 20 MG [...] Info) Description 11/01/2024 10:00 AM CDT Appointment [place] [address] Family Medicine [address] [place] [address] Katherine Ni, DOUGHNUT MAKER, GLOBAL EXPANSION SALES DIRECTOR [address] [place] [address] 11/15/2024 10:30 AM CDT Appointment [place] [address] [place] [address]. [place] [address] Jennifer Olguin MD [address] [place] [address] documented as of this encounter Visit Diagnoses Diagnosis Gastroesophageal reflux disease without esophagitis Esophageal reflux documented in this encounter Care Teams Fire Captain Marine Relationship Specialty Start Date End Date Ben Peterson DO [address] [place] [address] PCP - General Family Practice 10/02/23 documented as of this encounter
[2024-10-28 03:00] VITALS: BP 129/86; PULSE 85; RESP 18; TEMP 36.7; O2SAT 98; BMI 23.1
[2024-10-28 03:30] LABS: Chloride* 102 mmol/L (96-114); Potassium* 4.0 mmol/L (3.6-5.1); Sodium* 137 mmol/L (135-149)
[2024-10-28 03:33] LABS: Anion Gap 5 mEq/L (7-15); Blood Urea Nitrogen* 17 mg/dL (7-30); Carbon Dioxide* 30 mmol/L (20-32); Creatinine* 0.8 mg/dL (0.5-1.5); Est. Creatinine Clearance* 78.28; Estimated Glomerular Filt Rate 96 ml/min
[2024-10-28 03:34] LABS: Calcium* 9.1 mg/dL (8.4-10.6); Glucose* 77 mg/dL (60-115)
--- NOTE | 2024-10-28 04:14 | ED.ANXIETY ---
HPI - Anxiety General Date Seen: 10/28/24 Chief Complaint: Anxiety Stated Complaint: anxiety Time Seen by Provider: 10/28/24 03:07 History of Present Illness HPI narrative: Patient is a 69-year-old chronic schizophrenic who was recently admitted to [facility] for acute psychosis. He was found to be hyponatremic likely due to over ingestion of water. Tonight he thought he tasted salt on his lips and was worried that his sodium level was off. He acknowledges that he got himself worked anxious about this and comes in by ambulance after midnight. He is on 2500 mL fluid restriction and the majority of that is supposed to be sugar free Powerade. He is eating well. He has been taking his medications. He has an appointment next week with his new PCP [facility] the [facility] [place]. Related Data Home Medications ?Medication ?Instructions ?Recorded ?Confirmed aspirin 81 mg tablet,delayed 81 mg PO DAILY 10/20/24 10/22/24 release (Adult Aspirin Regimen) diphenhydramine HCl 50 mg capsule 50 mg PO QHS 10/20/24 10/22/24 fluoxetine .Route 10/20/24 lorazepam 0.5 mg tablet (Ativan) 0.5 mg PO BID 10/20/24 10/22/24 methylphenidate HCl .Route 4XD 10/20/24 olanzapine .Route 10/20/24 omeprazole 40 mg capsule,delayed 40 mg PO DAILY 10/20/24 10/22/24 release quetiapine 400 mg tablet (Seroquel) 400 mg PO DAILY 10/20/24 10/22/24 quetiapine 50 mg tablet (Seroquel) 50 mg PO DAILY 10/20/24 10/22/24 Allergies Allergy/AdvReac Type Severity Reaction Status Date / Time No Known Drug Allergies Allergy Verified 10/28/24 03:04 Review of Systems Narrative: Review of systems is outlined above otherwise noted to be negative. [facility] Medical History Hyponatremia ?E87.1 - Hypo-osmolality and hyponatremia (ICD-10) OCD (obsessive compulsive disorder) ?F42.9 - Obsessive-compulsive disorder, unspecified (ICD-10) Major depressive disorder with psychotic features ?F32.3 - Major depressive disorder, single episode, severe with psychotic features (ICD-10) Hernia ?K46.9 - Unspecified abdominal hernia without obstruction or gangrene (ICD-10) Social History Smoking Status: Unknown if ever smoked Exam Narrative: Exam Narrative: Vitals noted. HEENT: Conjunctiva clear. Tympanic membranes are pearly white bilaterally. Posterior pharynx is clear without erythema or exudate. Neck is supple without adenopathy, thyromegaly, carotid bruit. Lungs: Clear to auscultation in all gil. No wheezes, rales, rhonchi. Heart: Regular rate and rhythm without murmur. Abdomen: Soft and nontender. No guarding, rigidity, rebound. Bowel sounds are normal. No palpable masses. Extremities: No cyanosis or edema. Good distal pulses. Skin: No abnormalities noted of the exposed skin. Neurologic: Awake, alert, fully oriented. Neurologic exam is nonfocal. His speech is rambling but he is coherent and oriented. No suicidal thoughts or intent. Const: Vital Signs, click to edit/add: Vital Signs - 24 hr 10/28/24 03:00 Temperature 98.1 F Pulse Rate [Right Pulse Oximeter] 85 Respiratory Rate 18 Blood Pressure [Ri ght Upper Arm] 129/86 Pulse Oximetry 98 Oxygen Delivery Me thod Room Air Course Course ED Course: Patient seen and examined. Basic metabolic panel is normal. Sodium is 137. Patient is reassured that his labs look good and he feels much better knowing that. Vital Signs Vital signs: Initial Vital Signs Temperature 98.1 F 10/28/24 03:00 Temperature Source Temporal Artery Scan 10/28/24 03:00 Pulse Rate 85 10/28/24 03:00 Pulse Rhythm Regular 10/28/24 03:00 Pulse Strength 3+ Normal 10/28/24 03:00 Respiratory Rate 18 10/28/24 03:00 Blood Pressure 129/86 10/28/24 03:00 Blood Pressure Mean 100 10/28/24 03:00 Blood Pressure Position Sitting 10/28/24 03:00 Pulse Oximetry 98 10/28/24 03:00 Oxygen Delivery Method Room Air 10/28/24 03:00 Vital Signs Temperature 98.1 F 10/28/24 03:00 Pulse Rate 85 10/28/24 03:00 Respiratory Rate 18 10/28/24 03:00 Blood Pressure 129/86 10/28/24 03:00 Pulse Oximetry 98 10/28/24 03:00 Oxygen Delivery Method Room Air 10/28/24 03:00 Temperature 98.1 F 10/28/24 03:00 Pulse Rate 85 10/28/24 03:00 Respiratory Rate 18 10/28/24 03:00 Blood Pressure 129/86 10/28/24 03:00 Pulse Oximetry 98 10/28/24 03:00 Oxygen Delivery Method Room Air 10/28/24 03:00 MDM - Anxiety Lab Data Labs: Lab Results 10/28/24 Range/Units 03:10 Sodium 137 (135-149) mmol/L Potassium 4.0 (3.6-5.1) mmol/L Chloride 102 (96-114) mmol/L Carbon Dioxide 30 (20-32) mmol/L Anion Gap 5 L (7-15) mEq/L BUN 17 (7-30) mg/dL Creatinine 0.8 (0.5-1.5) mg/dL Estimated Creat Clear 78.28 Estimated GFR 96 ml/min Glucose 77 (60-115) mg/dL Calcium 9.1 (8.4-10.6) mg/dL Discharge Plan Discharge Clinical Impression: Acute anxiety Patient Disposition: Home, Self-Care Condition: Stable Additional Instructions: Continue to limit your water intake. Your sodium tonight is a normal. Follow-up with your PCP as scheduled. Continue all of your current medications. Prescriptions: No Action methylphenidate HCl [Ritalin LA] .Route 4XD omeprazole 40 mg capsule,delayed release(DR/EC) 40 mg PO DAILY fluoxetine .Route lorazepam [Ativan] 0.5 mg tablet 0.5 mg PO BID quetiapine [Seroquel] 400 mg tablet 400 mg PO DAILY quetiapine [Seroquel] 50 mg tablet 50 mg PO DAILY olanzapine .Route diphenhydramine HCl 50 mg capsule 50 mg PO QHS aspirin [Adult Aspirin Regimen] 81 mg tablet,delayed release (DR/EC) 81 mg PO DAILY Follow Up/Referrals: Provider,Not a Local [Primary Care Provider, Family Practice] Stand Alone Forms: [employer] Info Instructions
== END 2024-10-28 08:19 | disposition home or self-care (01) ==
PROVIDERS: Emergency Provider Family Medicine
DX: F41.9 Anxiety disorder, unspecified (principal)
CPT/HCPCS: 36415; 80048; 99282; 99284